=== PATIENT | female | born 1955 | race Caucasian/White ===

== ENCOUNTER 2020-12-08 06:30 | Inpatient (IN) ==
[2020-12-08] MEDS ORDERED: ALBUTEROL SULFATE/IPRATROPIUM 3 ML NEBU IH ONE (06:56)
[2020-12-08] MEDS ORDERED: NORMAL SALINE 1,000 ML IV ONE ×2 (06:56→12:03)
--- NOTE | 2020-12-08 07:06 | ERNOTE ---
Dyspnea - Date Date of Service: 12/08/20 - General Presenting Symptoms: other - Patient feels dehydrated and weak Time Seen by Provider: 12/08/20 06:51 Source: patient Exam Limitations: no limitations - Immun/Allergies/Home Medications Immunizations: IMMUNIZATION HX Immunizations Up to Date Yes History of Influenza Vaccine No Hx Pneumococcal Vaccination No Allergies/Adverse Reactions: Allergies No Known Allergies Allergy (Verified 01/07/20 14:38) Home Medications: HOME MEDICATIONS Lisinopril/Hydrochlorothiazide [Lisinopril-Hctz 10-12.5 mg Tab] 1 ea PO DAILY 09/05/19 [Last Taken Unknown] - History of Present Illness Narrative: 65-year-old female comes to the emergency room complaining of feeling dehydrated. She states she had a CAT scan on Wednesday was diagnosed with pneumonia and was started on Levaquin. Patient is a difficult historian uncooperative at times. She states she has had 2 Covid tests were negative the last she thinks was . She denies any shortness of breath difficulty breathing the only thing again is that she feels dehydrated and weak. She states the reason we did a CAT scan was that she has a history of pulmonary embolism 2018. Patient was evaluated on [facility] she had blood work and a PE study due to a positive D-dimer the CT was read as no evidence for PE but she had bilateral multifocal pneumonia involving the left lower lobe probably consistent with a typical community-acquired bacterial pneumonia however given the multifocality cannot completely exclude the multifocal Covid pneumonia and associated reactive lymph nodes. Medical records were requested and received from [facility] her Covid at that time was negative Date (Duration): 12/08/20 Time (Timing): 07:03 Severity: moderate Treatment BUSINESS CENTER REPRESENTATIVE: by patient Initiating event: Reports: upper resp illness Frequency of episodes: Reports: no prior episodes Modifying Factors - (Improves): Reports: rest Modifying Factors (Worsens): Reports: coughing Associated Symptoms-Dyspnea: Reports: lightheadedness, weakness Prior Treatment: Reports: recently seen Review of Systems - Review of Systems Constitutional: Present: weakness EYE: Present: no symptoms reported ENT: Present: no symptoms reported Respiratory: Present: shortness of breath Cardiology: Present: no symptoms reported Gastrointestinal/Abdominal: Present: no symptoms reported Genitourinary: Present: no symptoms reported Musculoskeletal: Present: no symptoms reported Skin: Present: no symptoms reported Neurological: Present: anxiety Endocrine: Present: no symptoms reported All Other Systems: All systems neg except as marked Medical History (Last Reviewed 12/08/20 @ 07:04 by Toño Mendes MD) Hypertension Pulmonary embolism Surgical History: Surgical History (Last Reviewed 12/08/20 @ 07:04 by Toño Mendes MD) Hx of left knee surgery Family History: Family History (Last Reviewed 12/08/20 @ 06:45 by Mireya Lux, RN) Other No pertinent family history Social History: (Last Reviewed 12/08/20 @ 06:45 by Mireya Lux, RN) Social History: adopted: No foster care: No current occupational status: employed Tobacco: Smoking Status: Never smoker Alcohol: alcohol intake frequency: other Substance Use: substance use type: does not use Dietary Habits: caffeine: Yes Physical Exam - Physical Exam General Appearance: Present: wd/wn, alert, moderate distress Head Exam: Present: normal inspection Eye Exam: Normal inspection: bilateral, PERRL: bilateral, EOMI: bilateral Ears, Nose, Throat: Present: normal ENT inspection, dry mucous membranes Neck: Present: normal inspection, nontender, supple, full range of motion Respiratory: Present: no respiratory distress Cardiovascular/Chest: Present: regular rate, rhythm Gastrointestinal/Abdominal: Present: normal bowel sounds Back Exam: Present: normal inspection Extremity Exam: Present: normal inspection Neurological Exam: Present: alert, oriented, no motor/sensory deficits Skin Exam: Present: normal color, warm/dry Lymphatic Exam: Present: no adenopathy Progress - Vital Signs Vital Signs: Vital Signs 12/08/20 06:40 12/08/20 06:44 Temperature 37.5 C Pulse Rate 120 H 122 H Respiratory Rate 16 Blood Pressure 116/74 O2 Sat by Pulse Oximetry 90 L - EKG EKG #1 EKG: NSR EKG read: Interp. by me EKG Comments: EKG sinus rhythm heart rate of 91 old anterior myocardial infarction no acute changes when compared to August 31 - Progress/Reassessment Chief Complaint: Dyspnea - Transfer of Care Physician Sign Out: Toño Mendes Receiving Physician: Didier Peralta Pending Results: CT/MRI results, Labs Expected Disposition: Admit Departure Clinical Impression: Pneumonia - Departure Disposition: Still a patient Condition: Fair Referrals: Mary Jo Kim ARNP [Primary Care Provider] -
[2020-12-08 07:21] LABS: Hematocrit 36.5 % (37.0-47.0); Mean Cell Volume 94.1 fl (78-100); Mean Corpuscular Hemoglobin 30.9 pg (27-31); Mean Corpuscular Hgb Conc 32.9 g/dl (32-36); Mean Platelet Volume 8.8 fl (8-12.5); Platelet Count 151 K/mm3 (150-450); Red Blood Count 3.88 M/mm3 (4.2-5.4); White Blood Count 7.6 K/mm3 (4.0-10.5)
[2020-12-08 07:28] LABS: Total Cells Counted 100
[2020-12-08 07:34] LABS: Troponin I Less than 0.017 ng/mL (0.00-0.10)
[2020-12-08 07:36] LABS: ALT 78 U/L (19-67); AST 65 U/L (0-48); Alkaline Phosphatase * 82 U/L (50-170); Anion Gap 16.7 mmol/L (6.8-13.8); BNP * 378 pg/mL (5-325); BUN/Creatinine Ratio 12.4 (9.0-21.6); Bilirubin, Total 0.3 mg/dL (0.0-1.1); Blood Urea Nitrogen 13 mg/dL (3-23); Ca. Corrected For Albumin 8.6 mg/dL (8.4-10.2); Calcium * 8.1 mg/dL (7.9-10.9); Carbon Dioxide 21.1 mmol/L (24-32.6); Chloride 99 mmol/L (97-106); Glucose * 133 mg/dL (70-110); Potassium 3.8 mmol/L (3.4-4.6); Sodium 133 mmol/L (132-142); Total Protein 7.1 gm/dL (6.2-8.2)
[2020-12-08 07:47] LABS: Band 3 % (0-2.0); Lymphocyte 10 % (20-51); Monocyte 2 % (0-9); Neutrophil 85 % (42-75); Neutrophil # 6.5 K/mm3 (1.3-6.0)
[2020-12-08 07:48] LABS: Anisocytosis Trace; Platelet Estimate Normal (NORMAL)
[2020-12-08 08:41] LABS: Urine Appearance Clear (CLEAR); Urine Color Yellow
[2020-12-08 08:42] LABS: Urine Bilirubin 1 mg/dl (NEGATIVE); Urine Blood 5 /ul (NEGATIVE); Urine Ketone Large mg/dL (NEGATIVE); Urine Protein 100 mg/dL (NEGATIVE)
[2020-12-08 08:43] LABS: Urine Bacteria None Seen; Urine Nitrite Negative (NEGATIVE); Urine RBC 0-5 /hpf (0-5); Urine Urobilinogen Normal (NORMAL); Urine WBC 0-5 /hpf (0-5)
[2020-12-08] MEDS ORDERED: DEXAMETHASONE SODIUM PHOSP/PF 10 MG/ML VIAL IV ONE (09:12)
[2020-12-08] MEDS ORDERED: HYDROmorphone HCL 1 MG/ML DISP.SYRIN IV ONE (09:13)
[2020-12-08] MEDS ORDERED: AZITHROMYCIN 500 MG in DEXTROSE 5 % IN WATER 250 ML IV ONE ×2 (09:30)
--- NOTE | 2020-12-08 12:31 | HP ---
Chief Complaint - Chief Complaint Date of Service: 12/08/20 Time of Service: 12:23 Chief Complaint: I feel weak and dehydrated History of Present Illness: 65-year-old female with past medical history of hypertension and pulmonary embolism was evaluated the ER for worsening fatigue and generalized weakness of 2 weeks duration. Patient reports becoming ill 2 weeks ago when she developed a cough and fever and chills, she gradually got weaker and felt dehydrated. The patient reports she tried to eat to keep her nutrition but her appetite was poor, so she only ate crackers and drink water. She had been seen twice at [facility] in the ER where she was tested for COVID-19 but was negative, she was told she most likely has community pneumonia and was sent home. Last night her symptoms worsened and she could hardly sit up so she came to our ER where she was once again tested for COVID-19 and came a positive. The patient's O2 sats have been suboptimal although she did denies any melba shortness of breath. She also has a persistent cough that is worse on deep inspiration that was not responding to at home remedies. The patient did not feel safe staying home and felt that she needed to come to the hospital for care. Medical History (Last Reviewed 12/08/20 @ 11:27 by Gregorio Vee RN) Hypertension Pulmonary embolism Surgical History: Surgical History (Last Reviewed 12/08/20 @ 11:27 by Gregorio Vee RN) Hx of left knee surgery Family History: Family History (Last Reviewed 12/08/20 @ 11:27 by Gregorio Vee RN) Other No pertinent family history Social History: (Last Reviewed 12/08/20 @ 11:27 by Gregorio Vee RN) Social History: adopted: No foster care: No current occupational status: employed Tobacco: Smoking Status: Never smoker Alcohol: alcohol intake frequency: other Substance Use: substance use type: does not use Dietary Habits: caffeine: Yes Peds Patient Hx - Developmental: No Pertinent Hx Peds Patient Hx - Medical: No Pertinent Hx Peds Patient Hx - Cardiac/Respiratory: No Pertinent Hx Peds Patient Hx - Surgical: No Surgical History Patient History - Cancer: No Hx of Cancer Review Of Systems (GEN) - Review of Systems Generalized/Overall Review: Present: Weakness, Chills, Fever, Fatigue EENTM: Present: No Symptoms Reported Respiratory: Present: Cough Cardiac: Present: No Symptoms Reported Abdominal: Present: Other - Loss of appetite Genitourinary: Present: No Symptoms Reported Musculoskeletal: Present: No Symptoms Reported Neurological: Present: No Symptoms Reported Skin: Present: No Symptoms Reported Endocrine: Present: No Symptoms Reported Immunizations: IMMUNIZATION HX Immunizations Up to Date Yes History of Influenza Vaccine No Hx Pneumococcal Vaccination No Allergies/Adverse Reactions: Allergies Allergy/AdvReac Type Severity Reaction Status Date / Time No Known Allergies Allergy Verified 12/08/20 11:27 Home Medications: HOME MEDICATIONS Lisinopril/Hydrochlorothiazide [Lisinopril-Hctz 10-12.5 mg Tab] 1 ea PO DAILY 09/05/19 [Last Taken Unknown] Levofloxacin [Levaquin] 500 mg PO DAILY 12/08/20 [Last Taken Unknown] amLODIPine BESYLATE [Norvasc] 5 mg PO DAILY 12/08/20 [Last Taken Unknown] Exam - Exam Vital Signs: Vital Signs - Last Taken Temp 37.3 C 12/08/20 11:26 Pulse 102 H 12/08/20 11:26 Resp 21 H 12/08/20 11:26 BP 121/75 12/08/20 11:26 Pulse Ox 96 12/08/20 11:26 Constitutional: Present: Alert, Oriented x3, Cooperative, Well developed, Well nourished, No distress, Lethargic Eye Exam: bilateral eye: normal inspection, PERRL, EOMI Neck: Present: non-tender, full range of motion, supple, normal inspection, trachea midline Back Exam: Present: normal inspection, no CVA tenderness, no vertebral tenderness Breasts: Present: Exam deferred, Nontender Respiratory: Present: chest non-tender, no respiratory distress, no accessory muscle use, decreased breath sounds, crackles Cardiovascular/Chest: Present: normal peripheral pulses, regular rate, rhythm, no chest tenderness, no edema, no gallop, no JVD, no murmur, no rub Peripheral Pulses: dorsalis-pedis (R): 2+, dorsalis-pedis (L): 2+ Abdomen: Present: Normal bowel sounds, soft, nontender, nondistended, no rebound tenderness, no hepatospenomegaly, no masses /Rectal: Present: Exam deferred Extremity: Present: normal range of motion, non-tender, normal inspection, no pedal edema, no calf tenderness, normal capillary refill, pelvis stable Skin Exam: Present: normal color, warm/dry, no cyanosis Lymphatic: Present: no adenopathy Neurologic: Present: motor overhauler II-XII nml as tested, no motor/sensory deficits, alert, normal mood/affect, oriented x 3 Appearance: Present: appropriate appearance, appropriate insight, neat, no memory impairment Eye contact: Present: cooperative, good eye contact, normal speech Thoughts: Present: normal thought pattern, no apparent hallucination Diagnostic Studies: Abnormal Lab Results 12/08/20 12/08/20 12/08/20 Range/Units 07:10 07:10 07:10 RBC 3.88 L (4.2-5.4) M/mm3 Hgb 12.0 L (12.5-16.0) gm/dL Hct 36.5 L (37.0-47.0) % Neutrophils % (Manual) 85 H (42-75) % Band Neuts % (Manual) 3 H (0-2.0) % Lymphocytes % (Manual) 10 L (20-51) % Neutrophils # (Manual) 6.5 H (1.3-6.0) K/mm3 Lymphocytes # (Manual) 0.8 L (1.5-3.5) k/mm3 D-Dimer 2.81 H (0.19-0.49) ugFEU/mL pCO2 (32.0-45.0) mmHg pO2 (83.0-108.0) mmHg HCO3 (21.0-28.0) mmol/L Total CO2 (19.0-24.0) mmol/L Base Excess (-2.0-3.0) mmol/L ABG pH (7.35-7.45) ABG O2 Sat (Measured) (94.0-98.0) % Carbon Dioxide 21.1 L (24-32.6) mmol/L Anion Gap 16.7 H (6.8-13.8) mmol/L Est GFR (Non-Af Amer) 56 L (60-130) mL/min Random Glucose 133 H (70-110) mg/dL AST 65 H (0-48) U/L ALT 78 H (19-67) U/L B-Natriuretic Peptide 378 H (5-325) pg/mL Albumin 3.0 L (3.4-5.0) gm/dl Urine Protein (NEGATIVE) mg/dL Urine Blood (NEGATIVE) /ul Urine Bilirubin (NEGATIVE) mg/dl SARS-CoV-2 (PCR) (NotDetected) 12/08/20 12/08/20 12/08/20 Range/Units 07:15 08:13 08:15 RBC (4.2-5.4) M/mm3 Hgb (12.5-16.0) gm/dL Hct (37.0-47.0) % Neutrophils % (Manual) (42-75) % Band Neuts % (Manual) (0-2.0) % Lymphocytes % (Manual) (20-51) % Neutrophils # (Manual) (1.3-6.0) K/mm3 Lymphocytes # (Manual) (1.5-3.5) k/mm3 D-Dimer (0.19-0.49) ugFEU/mL pCO2 22.0 L (32.0-45.0) mmHg pO2 58.7 L (83.0-108.0) mmHg HCO3 16.2 L (21.0-28.0) mmol/L Total CO2 16.9 L (19.0-24.0) mmol/L Base Excess -5.3 L (-2.0-3.0) mmol/L ABG pH 7.49 H (7.35-7.45) ABG O2 Sat (Measured) 93.0 L (94.0-98.0) % Carbon Dioxide (24-32.6) mmol/L Anion Gap (6.8-13.8) mmol/L Est GFR (Non-Af Amer) (60-130) mL/min Random Glucose (70-110) mg/dL AST (0-48) U/L ALT (19-67) U/L B-Natriuretic Peptide (5-325) pg/mL Albumin (3.4-5.0) gm/dl Urine Protein 100 H (NEGATIVE) mg/dL Urine Blood 5 H (NEGATIVE) /ul Urine Bilirubin 1 H (NEGATIVE) mg/dl SARS-CoV-2 (PCR) Detected H (NotDetected) Laboratory Results WBC 7.6 K/mm3 (4.0-10.5) 12/08/20 07:10 RBC 3.88 M/mm3 (4.2-5.4) L 12/08/20 07:10 Hgb 12.0 gm/dL (12.5-16.0) L 12/08/20 07:10 Hct 36.5 % (37.0-47.0) L 12/08/20 07:10 MCV 94.1 fl (78-100) 12/08/20 07:10 MCH 30.9 pg (27-31) 12/08/20 07:10 MCHC 32.9 g/dl (32-36) 12/08/20 07:10 RDW 13.0 % (11.5-14.0) 12/08/20 07:10 Plt Count 151 K/mm3 (150-450) 12/08/20 07:10 MPV 8.8 fl (8-12.5) 12/08/20 07:10 Neutrophils % (Manual) 85 % (42-75) H 12/08/20 07:10 Band Neuts % (Manual) 3 % (0-2.0) H 12/08/20 07:10 Lymphocytes % (Manual) 10 % (20-51) L 12/08/20 07:10 Monocytes % (Manual) 2 % (0-9) 12/08/20 07:10 Neutrophils # (Manual) 6.5 K/mm3 (1.3-6.0) H 12/08/20 07:10 Lymphocytes # (Manual) 0.8 k/mm3 (1.5-3.5) L 12/08/20 07:10 Monocytes # (Manual) 0.2 k/mm3 (0.0-1.0) 12/08/20 07:10 Platelet Estimate Normal (NORMAL) 12/08/20 07:10 Anisocytosis Trace 12/08/20 07:10 PTT ([place]) 31.3 Seconds (24-32) 12/08/20 07:10 D-Dimer 2.81 ugFEU/mL (0.19-0.49) H 12/08/20 07:10 pCO2 22.0 mmHg (32.0-45.0) L 12/08/20 07:15 pO2 58.7 mmHg (83.0-108.0) L 12/08/20 07:15 HCO3 16.2 mmol/L (21.0-28.0) L 12/08/20 07:15 Total CO2 16.9 mmol/L (19.0-24.0) L 12/08/20 07:15 Base Excess -5.3 mmol/L (-2.0-3.0) L 12/08/20 07:15 ABG pH 7.49 (7.35-7.45) H 12/08/20 07:15 ABG O2 Sat (Measured) 93.0 % (94.0-98.0) L 12/08/20 07:15 Sodium 133 mmol/L (132-142) 12/08/20 07:10 Plasma Sodium 134 mmol/L (130-142) 12/08/20 07:10 Potassium 3.8 mmol/L (3.4-4.6) 12/08/20 07:10 Chloride 99 mmol/L (97-106) 12/08/20 07:10 Carbon Dioxide 21.1 mmol/L (24-32.6) L 12/08/20 07:10 Anion Gap 16.7 mmol/L (6.8-13.8) H 12/08/20 07:10 BUN 13 mg/dL (3-23) 12/08/20 07:10 Creatinine 1.05 mg/dL (0.4-1.4) 12/08/20 07:10 Est GFR (Non-Af Amer) 56 mL/min (60-130) L 12/08/20 07:10 BUN/Creatinine Ratio 12.4 (9.0-21.6) 12/08/20 07:10 Random Glucose 133 mg/dL (70-110) H 12/08/20 07:10 Calcium 8.1 mg/dL (7.9-10.9) 12/08/20 07:10 Calcium Adj for Albumin 8.6 mg/dL (8.4-10.2) 12/08/20 07:10 Total Bilirubin 0.3 mg/dL (0.0-1.1) 12/08/20 07:10 AST 65 U/L (0-48) H 12/08/20 07:10 ALT 78 U/L (19-67) H 12/08/20 07:10 Alkaline Phosphatase 82 U/L (50-170) 12/08/20 07:10 Troponin I Less than 0.017 ng/mL (0.00-0.10) 12/08/20 07:10 B-Natriuretic Peptide 378 pg/mL (5-325) H 12/08/20 07:10 Total Protein 7.1 gm/dL (6.2-8.2) 12/08/20 07:10 Albumin 3.0 gm/dl (3.4-5.0) L 12/08/20 07:10 Urine Color Yellow 12/08/20 08:13 Urine Appearance Clear (CLEAR) 12/08/20 08:13 Urine pH 7.0 pH (5.0-7.0) 12/08/20 08:13 Ur Specific [place] 1.020 SP.GR. (1.005-1.010) 12/08/20 08:13 Urine Protein 100 mg/dL (NEGATIVE) H 12/08/20 08:13 Urine Glucose (UA) Negative mg/dL (NEGATIVE) 12/08/20 08:13 Urine Ketones Large mg/dL (NEGATIVE) 12/08/20 08:13 Urine Blood 5 /ul (NEGATIVE) H 12/08/20 08:13 Urine Nitrate Negative (NEGATIVE) 12/08/20 08:13 Urine Bilirubin 1 mg/dl (NEGATIVE) H 12/08/20 08:13 Urine Urobilinogen Normal EU/dl (NORMAL) 12/08/20 08:13 Ur Leukocyte Esterase Negative /ul (NEGATIVE) 12/08/20 08:13 Urine RBC 0-5 /hpf (0-5) 12/08/20 08:13 Urine WBC 0-5 /hpf (0-5) 12/08/20 08:13 Ur Epithelial Cells 0-5 /hpf (0-5) 12/08/20 08:13 Urine Bacteria None seen (NONE) 12/08/20 08:13 Urine Culture Comments No culture indicated 12/08/20 08:13 SARS-CoV-2 (PCR) Detected (NotDetected) H 12/08/20 08:15 Assessment/Plan - Narrative Narrative: Patient was evaluated and medical chart was reviewed and decision to admit to [facility] for diagnosis and treatment of COVID-19 pneumonia and moderate dehydration was made. Patient has been treated with IV fluids and antibiotics which she has tolerated without any issues. We will keep her on that current treatment but also add dexamethasone to be given daily. Symptomatic medications for cough fever and pain will also be added to orders. The patient is breathing adequately with a saturation above 94% on room air, so she is not requiring oxygen at this time. However we will keep her on telemetry monitoring watch her closely. Of note she did have an elevated D-dimer which is common in COVID-19 infections but her lung CT was negative for any PE. - Assessment/Plan (1) Pneumonia due to COVID-19 virus Problem: Acute (2) Moderate dehydration Problem: Acute (3) Elevated d-dimer Problem: Acute (4) HTN (hypertension) Problem: Chronic
[2020-12-08] MEDS: ENOXAPARIN SODIUM 40 MG/0.4 ML SYRG SC SCH (13:17)
[2020-12-08] MEDS: guaiFENesin/DEXTROMETHORPHAN SYRUP PO PRN ×2 (15:35→20:34)
[2020-12-08] MEDS: PANTOPRAZOLE SODIUM 20 MG TABLET.DR PO SCH (20:33)
[2020-12-08] MEDS: ACETAMINOPHEN 325 MG TABLET PO PRN (23:36)
[2020-12-09] MEDS: guaiFENesin/DEXTROMETHORPHAN SYRUP PO PRN ×4 (05:03→23:42)
[2020-12-09 06:40] LABS: Albumin * 2.5 gm/dl (3.4-5.0); Anion Gap 15.5 mmol/L (6.8-13.8); BUN/Creatinine Ratio 14.3 (9.0-21.6); Bilirubin, Total 0.3 mg/dL (0.0-1.1); Ca. Corrected For Albumin 8.6 mg/dL (8.4-10.2); Calcium * 7.7 mg/dL (7.9-10.9); Carbon Dioxide 21.3 mmol/L (24-32.6); Potassium 3.8 mmol/L (3.4-4.6); Total Protein 6.4 gm/dL (6.2-8.2)
[2020-12-09] MEDS: ACETAMINOPHEN 325 MG TABLET PO PRN ×2 (07:37→20:26)
[2020-12-09] MEDS: PANTOPRAZOLE SODIUM 20 MG TABLET.DR PO SCH ×2 (07:38→20:26)
[2020-12-09] MEDS: DEXAMETHASONE 2 MG TABLET PO SCH (08:45)
[2020-12-09] MEDS: HYDROCHLOROTHIAZIDE 12.5 MG CAPSULE PO SCH (08:46)
[2020-12-09] MEDS: LISINOPRIL 10 MG TABLET PO SCH (08:46)
[2020-12-09] MEDS: amLODIPine BESYLATE 5 MG TABLET PO SCH (08:46)
[2020-12-09] MEDS: AZITHROMYCIN 250 MG TABLET PO SCH (08:46)
[2020-12-09] MEDS ORDERED: NORMAL SALINE 1,000 ML IV ONE (12:31)
--- NOTE | 2020-12-09 12:34 | PN ---
Subjective - Date and Time Seen Date: 12/09/20 Time: 12:26 Subjective Narrative: I still feel horrible, I'm weak and coughing and chest congestion. Objective Objective Narrative: 65-year-old female admitted for COVID-19 pneumonia and dehydration was evaluated at bedside this morning and was found to be acutely ill with persistent dry cough and generalized weakness. The patient continues to report not feeling well and says she is still weak and having chest congestion. Since arriving to the hospital she has been treated with IV hydration, IV antibiotics, and symptomatic medications treat treat her symptoms. She reports feeling only slightly stronger when compared to yesterday but still way weaker than she normally is. The patient had an episode of fever this morning and had to be administered antipyretics and antitussives for her cough. She is now tolerating oral intake although she reports subpar appetite, however during our conversation this morning she was encouraged to try to eat and drink to resume her strength. We will keep her in the hospital an additional day for intrahospital treatment. - Review of Systems Generalized/Overall Review: Reports: Weakness, Chills, Fever, Fatigue EENTM: Reports: No Symptoms Reported Respiratory: Reports: Cough, Shortness of Breath Cardiac: Reports: No Symptoms Reported Abdominal: Reports: No Symptoms Reported Genitourinary Symptoms: Reports: No Symptoms Reported Musculoskeletal Complaints: Reports: Muscle Pain Neurological: Reports: No Symptoms Reported Skin: Reports: No Symptoms Reported Endocrine: Reports: No Symptoms Reported - Vitals Vitals: Last Vital Signs Temp 37.4 C 12/09/20 11:44 Pulse 94 12/09/20 11:44 Resp 20 12/09/20 11:44 BP 129/71 12/09/20 11:44 Pulse Ox 92 L 12/09/20 11:44 - Abnormal Lab Findings Abnormal Lab Findings: Abnormal Lab Results 12/09/20 Range/Units 06:16 Carbon Dioxide 21.3 L (24-32.6) mmol/L Anion Gap 15.5 H (6.8-13.8) mmol/L Est GFR (Non-Af Amer) 56 L (60-130) mL/min Random Glucose 146 H (70-110) mg/dL Calcium 7.7 L (7.9-10.9) mg/dL AST 64 H (0-48) U/L ALT 69 H (19-67) U/L Albumin 2.5 L (3.4-5.0) gm/dl - Exam Constitutional: Present: Alert, Oriented x3, Cooperative, Well developed, Well nourished, No distress ENT Exam: Present: normal ENT inspection, hearing grossly normal Neck: Present: non-tender, full range of motion, supple, normal inspection, trachea midline Breasts: Present: Exam deferred, Nontender Respiratory: Present: no respiratory distress, no accessory muscle use, decreased breath sounds, crackles, rales Cardiovascular/Chest: Present: normal peripheral pulses, regular rate, rhythm, no chest tenderness, no edema, no gallop, no JVD, no murmur, no rub Abdomen: Present: Normal bowel sounds, soft, nontender, nondistended, no rebound tenderness, no hepatospenomegaly, no masses /Rectal: Present: Exam deferred Extremity: Present: normal range of motion, non-tender, normal inspection, no pedal edema, no calf tenderness, normal capillary refill, pelvis stable Skin Exam: Present: normal color, warm/dry, no cyanosis Lymphatic: Present: no adenopathy Neurologic: Present: search strategist II-XII nml as tested, no motor/sensory deficits, alert, normal mood/affect, oriented x 3 Appearance: Present: appropriate appearance, appropriate insight, neat, no memory impairment Eye contact: Present: cooperative, good eye contact, normal speech Thoughts: Present: normal thought pattern, no apparent hallucination Assessment/Plan Plan Narrative: We will keep the patient on IV hydration and IV antibiotics, and continue to treat her with breathing treatments to alleviate her dyspnea. The patient is also tolerating oral dexamethasone without any issues. We will continue to monitor closely. - Problems/Diagnosis (1) Pneumonia due to COVID-19 virus Problem: Acute (2) Moderate dehydration Problem: Resolved (3) Elevated d-dimer Problem: Acute (4) HTN (hypertension) Problem: Chronic (5) Transaminitis Problem: Acute
[2020-12-09] MEDS: ENOXAPARIN SODIUM 40 MG/0.4 ML SYRG SC SCH (12:37)
[2020-12-10] MEDS: guaiFENesin/DEXTROMETHORPHAN SYRUP PO PRN ×3 (03:45→21:42)
[2020-12-10] MEDS: ACETAMINOPHEN 325 MG TABLET PO PRN ×3 (06:37→21:43)
[2020-12-10] MEDS: PANTOPRAZOLE SODIUM 20 MG TABLET.DR PO SCH ×2 (06:38→20:16)
--- NOTE | 2020-12-10 09:28 | PN ---
Subjective - Date and Time Seen Date: 12/10/20 Time: 09:22 Subjective Narrative: I still feel bad, weak and with chest congestion. Objective Objective Narrative: 65-year-old female admitted for COVID-19 pneumonia and dehydration was evaluated at bedside this morning and was found to be eval and in no acute distress. Patient continues to be acutely ill, she continues to report body ache weakness and chest congestion. Since yesterday's bout of fever we have not had a recurrence however the patient still looks sick. She will need an additional day of intrahospital care to address her COVID-19 symptoms particula rly her breathing and her oxygen saturation. The patient is currently on antibiotics as well as dexamethasone so we will continue the current management and watch closely. - Review of Systems Generalized/Overall Review: Reports: Weakness, Fatigue EENTM: Reports: No Symptoms Reported Respiratory: Reports: Cough, Shortness of Breath Cardiac: Reports: No Symptoms Reported Abdominal: Reports: No Symptoms Reported Genitourinary Symptoms: Reports: No Symptoms Reported Musculoskeletal Complaints: Reports: No Symptoms Reported Neurological: Reports: No Symptoms Reported Skin: Reports: No Symptoms Reported Endocrine: Reports: No Symptoms Reported - Vitals Vitals: Last Vital Signs Temp 36.9 C 12/10/20 06:37 Pulse 83 12/10/20 08:36 Resp 30 H 12/10/20 06:37 BP 128/79 12/10/20 06:37 Pulse Ox 91 L 12/10/20 06:37 - Exam Constitutional: Present: Alert, Oriented x3, Cooperative, Well developed, Well nourished, No distress ENT Exam: Present: normal ENT inspection, hearing grossly normal Neck: Present: non-tender, full range of motion, supple, normal inspection, trachea midline Breasts: Present: Exam deferred, Nontender Respiratory: Present: no respiratory distress, no accessory muscle use, decreased breath sounds, crackles Cardiovascular/Chest: Present: normal peripheral pulses, regular rate, rhythm, no chest tenderness, no edema, no gallop, no JVD, no murmur, no rub Abdomen: Present: Normal bowel sounds, soft, nontender, nondistended, no rebound tenderness, no hepatospenomegaly, no masses /Rectal: Present: Exam deferred Extremity: Present: normal range of motion, non-tender, normal inspection, no pedal edema, no calf tenderness, normal capillary refill Skin Exam: Present: normal color, warm/dry, no cyanosis Lymphatic: Present: no adenopathy Neurologic: Present: mathematical statistician II-XII nml as tested, no motor/sensory deficits, alert, normal mood/affect, oriented x 3 Appearance: Present: appropriate appearance, appropriate insight, neat, no memory impairment Eye contact: Present: cooperative, good eye contact, normal speech Thoughts: Present: normal thought pattern, no apparent hallucination Assessment/Plan Plan Narrative: We will continue the current management and attempt to wean the patient's oxygen as she tolerates. Labs have been ordered for tomorrow morning so we will follow-up during rounds. - Problems/Diagnosis (1) Pneumonia due to COVID-19 virus Problem: Acute (2) Moderate dehydration Problem: Resolved (3) Elevated d-dimer Problem: Acute (4) HTN (hypertension) Problem: Chronic (5) Transaminitis Problem: Acute
[2020-12-10] MEDS: AZITHROMYCIN 250 MG TABLET PO SCH (09:34)
[2020-12-10] MEDS: HYDROCHLOROTHIAZIDE 12.5 MG CAPSULE PO SCH (09:34)
[2020-12-10] MEDS: LISINOPRIL 10 MG TABLET PO SCH (09:34)
[2020-12-10] MEDS: amLODIPine BESYLATE 5 MG TABLET PO SCH (09:34)
[2020-12-10] MEDS: DEXAMETHASONE 2 MG TABLET PO SCH (09:34)
[2020-12-10] MEDS: ENOXAPARIN SODIUM 40 MG/0.4 ML SYRG SC SCH (11:14)
[2020-12-11] MEDS: PANTOPRAZOLE SODIUM 20 MG TABLET.DR PO SCH ×2 (06:31→20:03)
[2020-12-11 06:55] LABS: Albumin * 2.5 gm/dl (3.4-5.0); Anion Gap 16.3 mmol/L (6.8-13.8); BUN/Creatinine Ratio 21.8 (9.0-21.6); Bilirubin, Total 0.4 mg/dL (0.0-1.1); Ca. Corrected For Albumin 8.9 mg/dL (8.4-10.2); Carbon Dioxide 22.2 mmol/L (24-32.6); Potassium 3.5 mmol/L (3.4-4.6); Total Protein 6.7 gm/dL (6.2-8.2)
[2020-12-11] MEDS: AZITHROMYCIN 250 MG TABLET PO SCH (08:39)
[2020-12-11] MEDS: DEXAMETHASONE 2 MG TABLET PO SCH (08:39)
[2020-12-11] MEDS: HYDROCHLOROTHIAZIDE 12.5 MG CAPSULE PO SCH (08:39)
[2020-12-11] MEDS: LISINOPRIL 10 MG TABLET PO SCH (08:39)
[2020-12-11] MEDS: amLODIPine BESYLATE 5 MG TABLET PO SCH (08:39)
[2020-12-11] MEDS: ACETAMINOPHEN 325 MG TABLET PO PRN ×3 (08:50→19:04)
[2020-12-11] MEDS: guaiFENesin/DEXTROMETHORPHAN SYRUP PO PRN ×2 (08:51→16:25)
[2020-12-11] MEDS ORDERED: NORMAL SALINE 1,000 ML IV PRN (09:47)
--- NOTE | 2020-12-11 09:49 | PN ---
Subjective - Date and Time Seen Date: 12/11/20 Time: 09:45 Subjective Narrative: I am very weak and have chest congestion and shortness of breath Objective Objective Narrative: 65-year-old female admitted for COVID-19 pneumonia and dehydration was evaluated at bedside this morning and was found to be eval and in no acute distress but patient continues to be acutely ill. She is still weak and tires very easily despite optimal hydration since arriving at our facility. She remains on high flow nasal cannula that has to be increased mostly at night and still has a persistent cough. Patient continues to have crackles at her lung bases which most likely indicates continued inflammation in her lungs. Nurse reports tolerance of oral intake but her appetite is still not where it needs to be. We will add another IV normal saline in order to continue hydrating her. - Review of Systems Generalized/Overall Review: Reports: Weakness EENTM: Reports: No Symptoms Reported Respiratory: Reports: Cough, Shortness of Breath Cardiac: Reports: No Symptoms Reported Abdominal: Reports: No Symptoms Reported Genitourinary Symptoms: Reports: No Symptoms Reported Musculoskeletal Complaints: Reports: No Symptoms Reported Neurological: Reports: No Symptoms Reported Skin: Reports: No Symptoms Reported Endocrine: Reports: No Symptoms Reported - Vitals Vitals: Last Vital Signs Temp 36.0 C 12/11/20 06:46 Pulse 95 12/11/20 08:39 Resp 30 H 12/11/20 06:46 BP 132/86 12/11/20 08:39 Pulse Ox 92 L 12/11/20 06:46 - Abnormal Lab Findings Abnormal Lab Findings: Abnormal Lab Results 12/11/20 Range/Units 06:36 Carbon Dioxide 22.2 L (24-32.6) mmol/L Anion Gap 16.3 H (6.8-13.8) mmol/L BUN/Creatinine Ratio 21.8 H (9.0-21.6) Random Glucose 142 H (70-110) mg/dL AST 63 H (0-48) U/L ALT 84 H (19-67) U/L Albumin 2.5 L (3.4-5.0) gm/dl - Exam Constitutional: Present: Alert, Oriented x3, Cooperative, Well developed, No distress ENT Exam: Present: normal ENT inspection, hearing grossly normal Neck: Present: non-tender, full range of motion, supple, normal inspection, trachea midline Breasts: Present: Exam deferred, Nontender Respiratory: Present: chest non-tender, no respiratory distress, no accessory muscle use, crackles Cardiovascular/Chest: Present: normal peripheral pulses, regular rate, rhythm, no chest tenderness, no edema, no gallop, no JVD, no murmur, no rub Abdomen: Present: Normal bowel sounds, soft, nontender, nondistended, no rebound tenderness, no hepatospenomegaly, no masses /Rectal: Present: Exam deferred Extremity: Present: normal range of motion, non-tender, normal inspection, no pedal edema, no calf tenderness, normal capillary refill, pelvis stable Skin Exam: Present: normal color, warm/dry, no cyanosis Lymphatic: Present: no adenopathy Neurologic: Present: certified pesticide 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 - Problems/Diagnosis (1) Pneumonia due to COVID-19 virus Problem: Acute (2) Moderate dehydration Problem: Resolved (3) Elevated d-dimer Problem: Acute (4) HTN (hypertension) Problem: Chronic (5) Transaminitis Problem: Acute
[2020-12-11] MEDS: ENOXAPARIN SODIUM 40 MG/0.4 ML SYRG SC SCH (11:15)
[2020-12-12] MEDS: ACETAMINOPHEN 325 MG TABLET PO PRN ×3 (02:02→19:52)
[2020-12-12] MEDS: guaiFENesin/DEXTROMETHORPHAN SYRUP PO PRN ×2 (02:02→19:52)
[2020-12-12] MEDS: PANTOPRAZOLE SODIUM 20 MG TABLET.DR PO SCH ×2 (06:29→20:37)
[2020-12-12] MEDS: amLODIPine BESYLATE 5 MG TABLET PO SCH (08:56)
[2020-12-12] MEDS: LISINOPRIL 10 MG TABLET PO SCH (08:56)
[2020-12-12] MEDS: HYDROCHLOROTHIAZIDE 12.5 MG CAPSULE PO SCH (08:56)
[2020-12-12] MEDS: DEXAMETHASONE 2 MG TABLET PO SCH (08:56)
[2020-12-12] MEDS: AZITHROMYCIN 250 MG TABLET PO SCH (08:56)
[2020-12-12] MEDS: ENOXAPARIN SODIUM 40 MG/0.4 ML SYRG SC SCH (11:48)
--- NOTE | 2020-12-12 11:51 | PN ---
Subjective - Date and Time Seen Date: 12/12/20 Time: 11:46 Subjective Narrative: I feel somewhat better, my appetite is improving Objective Objective Narrative: Patient is showing some clinical progress today, she is able to sit up in her chair comfortably and is reporting less weakness. Her shortness of breath and cough are also improving, however she remains on oxygen. We will attempt to wean oxygen to see how she tolerates we will keep her the breathing treatments and steroids for now. She reports better appetite and has been eating and drinking more and overall looks better this morning. We will continue to monit or her. - Review of Systems Generalized/Overall Review: Reports: Weakness EENTM: Reports: No Symptoms Reported Respiratory: Reports: Cough, Shortness of Breath Cardiac: Reports: No Symptoms Reported Abdominal: Reports: No Symptoms Reported Genitourinary Symptoms: Reports: No Symptoms Reported Musculoskeletal Complaints: Reports: No Symptoms Reported Neurological: Reports: No Symptoms Reported Skin: Reports: No Symptoms Reported Endocrine: Reports: No Symptoms Reported - Vitals Vitals: Last Vital Signs Temp 36.4 C 12/12/20 10:25 Pulse 100 12/12/20 10:25 Resp 24 H 12/12/20 10:25 BP 145/89 12/12/20 10:25 Pulse Ox 94 12/12/20 10:25 - Exam Constitutional: Present: Alert, Oriented x3, Cooperative, Well developed, No distress ENT Exam: Present: normal ENT inspection, hearing grossly normal Neck: Present: non-tender, full range of motion, supple, normal inspection, trachea midline Breasts: Present: Exam deferred Respiratory: Present: crackles - Fine bibasilar crackles Cardiovascular/Chest: Present: normal peripheral pulses, regular rate, rhythm, no chest tenderness, no edema, no gallop, no JVD, no murmur, no rub Abdomen: Present: Normal bowel sounds, soft, nontender, nondistended, no rebound tenderness, no hepatospenomegaly, no masses /Rectal: Present: Exam deferred Extremity: Present: normal range of motion, non-tender, normal inspection, no pedal edema, no calf tenderness Skin Exam: Present: normal color, warm/dry, no cyanosis Lymphatic: Present: no adenopathy 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 - Problems/Diagnosis (1) Pneumonia due to COVID-19 virus Problem: Acute (2) Moderate dehydration Problem: Resolved (3) Elevated d-dimer Problem: Acute (4) HTN (hypertension) Problem: Chronic (5) Transaminitis Problem: Acute
[2020-12-12] MEDS: ASCORBIC ACID 500 MG TABLET PO SCH (12:22)
[2020-12-12] MEDS: ZINC SULFATE 220 MG CAPSULE PO SCH (12:23)
[2020-12-13] MEDS: ACETAMINOPHEN 325 MG TABLET PO PRN ×3 (02:54→20:05)
[2020-12-13] MEDS: guaiFENesin/DEXTROMETHORPHAN SYRUP PO PRN ×3 (02:55→20:07)
[2020-12-13] MEDS: PANTOPRAZOLE SODIUM 20 MG TABLET.DR PO SCH ×2 (06:27→20:05)
[2020-12-13] MEDS: amLODIPine BESYLATE 5 MG TABLET PO SCH (08:15)
[2020-12-13] MEDS: HYDROCHLOROTHIAZIDE 12.5 MG CAPSULE PO SCH (08:15)
[2020-12-13] MEDS: DEXAMETHASONE 2 MG TABLET PO SCH (08:15)
[2020-12-13] MEDS: LISINOPRIL 10 MG TABLET PO SCH (08:15)
[2020-12-13] MEDS: ZINC SULFATE 220 MG CAPSULE PO SCH (08:17)
[2020-12-13] MEDS: ASCORBIC ACID 500 MG TABLET PO SCH (08:17)
--- NOTE | 2020-12-13 09:58 | PN ---
Subjective - Date and Time Seen Date: 12/13/20 Time: 09:52 Subjective Narrative: I still have shortness of breath Objective Objective Narrative: 65-year-old female admitted for COVID-19 pneumonia and dehydration was evaluated at bedside this morning was found to be afebrile and in no acute distress. However the patient continues to be acutely ill and still not feeling strong enough to leave the hospital. She continues to require a significant amount of supplemental oxygen, in fact this morning she regressed to a nonrebreather mask for better oxygenation. Patient continues to desat with minor exertion like transferring from bed to chair. Given these findings decision to repeat a chest x-ray switch to IV Solu-Medrol and to administer breathing treatment [id number] was made. - Review of Systems Generalized/Overall Review: Reports: Weakness EENTM: Reports: No Symptoms Reported Respiratory: Reports: Cough, Shortness of Breath Cardiac: Reports: No Symptoms Reported Abdominal: Reports: No Symptoms Reported Genitourinary Symptoms: Reports: No Symptoms Reported Musculoskeletal Complaints: Reports: No Symptoms Reported Neurological: Reports: No Symptoms Reported Skin: Reports: No Symptoms Reported Endocrine: Reports: No Symptoms Reported - Vitals Vitals: Last Vital Signs Temp 36.8 C 12/13/20 06:53 Pulse 90 12/13/20 08:15 Resp 23 H 12/13/20 06:53 BP 150/88 H 12/13/20 08:15 Pulse Ox 98 12/13/20 08:49 - Exam Constitutional: Present: Alert, Oriented x3, Cooperative, Well developed, Well nourished, No distress ENT Exam: Present: normal ENT inspection, hearing grossly normal Neck: Present: non-tender, full range of motion, supple, normal inspection, trachea midline Breasts: Present: Exam deferred, Nontender Respiratory: Present: no respiratory distress, no accessory muscle use, crackles Cardiovascular/Chest: Present: normal peripheral pulses, regular rate, rhythm, no chest tenderness, no edema, no gallop, no JVD, no murmur, no rub Abdomen: Present: Normal bowel sounds, soft, nontender, nondistended, no rebound tenderness, no hepatospenomegaly, no masses /Rectal: Present: Exam deferred Extremity: Present: normal range of motion, non-tender, normal inspection, no pedal edema, no calf tenderness, normal capillary refill, pelvis stable Skin Exam: Present: normal color, warm/dry, no cyanosis Lymphatic: Present: no adenopathy Neurologic: Present: 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 The patient was switched to IV Solu-Medrol and a repeat chest x-ray was ordered. We will also order a CMP to reevaluate electrolytes. Nursing staff has been changing the patient's position from decubitus to prone position every 2 hours which appears to be helping, will continue this practice and keep her for additional days of intrahospital care. - Problems/Diagnosis (1) Pneumonia due to COVID-19 virus Problem: Acute (2) Moderate dehydration Problem: Resolved (3) Elevated d-dimer Problem: Acute (4) HTN (hypertension) Problem: Chronic (5) Transaminitis Problem: Acute
[2020-12-13] MEDS ORDERED: METHYLPREDNISOLONE SOD SUCC/PF 40 MG/ML VIAL IV SCH (10:00)
[2020-12-13] MEDS: IPRATROPIUM/ALBUTEROL SULFATE 120 PUFF INHALER IH SCH ×4 (10:21→23:54)
[2020-12-13 10:44] LABS: Albumin * 2.5 gm/dl (3.4-5.0); Anion Gap 17.1 mmol/L (6.8-13.8); Bilirubin, Total 0.5 mg/dL (0.0-1.1); Ca. Corrected For Albumin 8.8 mg/dL (8.4-10.2); Calcium * 7.9 mg/dL (7.9-10.9); Carbon Dioxide 23.2 mmol/L (24-32.6); Potassium 3.3 mmol/L (3.4-4.6)
[2020-12-13] MEDS: ENOXAPARIN SODIUM 40 MG/0.4 ML SYRG SC SCH (11:20)
[2020-12-13] MEDS ORDERED: POTASSIUM CHLORIDE 20 MEQ TABLET.SA PO ONE (12:19)
[2020-12-13] MEDS: LEVOFLOXACIN IN DEXTROSE 5 % 500 MG/100 ML BAG IV SCH (13:06)
[2020-12-13] MEDS: FUROSEMIDE 10 MG/ML VIAL IV SCH ×2 (13:07→23:54)
[2020-12-13] MEDS: METHYLPREDNISOLONE SOD SUCC/PF 125 MG/2 ML VIAL IV SCH ×2 (15:11→21:14)
[2020-12-14] MEDS: METHYLPREDNISOLONE SOD SUCC/PF 125 MG/2 ML VIAL IV SCH ×4 (03:58→21:15)
[2020-12-14] MEDS: IPRATROPIUM/ALBUTEROL SULFATE 120 PUFF INHALER IH SCH ×6 (03:59→22:13)
[2020-12-14] MEDS: PANTOPRAZOLE SODIUM 20 MG TABLET.DR PO SCH ×2 (07:32→21:14)
[2020-12-14] MEDS: guaiFENesin/DEXTROMETHORPHAN SYRUP PO PRN ×4 (07:32→23:48)
[2020-12-14] MEDS: ACETAMINOPHEN 325 MG TABLET PO PRN ×4 (07:32→23:47)
[2020-12-14] MEDS: ZINC SULFATE 220 MG CAPSULE PO SCH (08:27)
[2020-12-14] MEDS: amLODIPine BESYLATE 10 MG TABLET PO SCH (08:27)
[2020-12-14] MEDS: HYDROCHLOROTHIAZIDE 12.5 MG CAPSULE PO SCH (08:28)
[2020-12-14] MEDS: LISINOPRIL 10 MG TABLET PO SCH (08:28)
[2020-12-14] MEDS: ASCORBIC ACID 500 MG TABLET PO SCH (08:28)
[2020-12-14] MEDS: ENOXAPARIN SODIUM 40 MG/0.4 ML SYRG SC SCH (12:01)
[2020-12-14] MEDS: LEVOFLOXACIN IN DEXTROSE 5 % 500 MG/100 ML BAG IV SCH (12:02)
[2020-12-14] MEDS: FUROSEMIDE 10 MG/ML VIAL IV SCH (12:02)
--- NOTE | 2020-12-14 13:51 | PN ---
Subjective - Date and Time Seen Date: 12/14/20 Time: 10:45 Subjective Narrative: Kristyn reports feeling a little better. No fever, chills. Breathing a little better. Nursing was able to wean from 13lpm to 8lpm this morning. She has been self proning well. Objective - Vitals Vitals: Last Vital Signs Temp 36.8 C 12/14/20 08:33 Pulse 115 H 12/14/20 12:02 Resp 23 H 12/14/20 08:33 BP 143/80 12/14/20 12:02 Pulse Ox 96 12/14/20 09:15 - Exam Constitutional: Present: Alert, Oriented x3, Cooperative Respiratory: Present: crackles Cardiovascular/Chest: Present: no murmur, tachycardia Abdomen: Present: Normal bowel sounds, soft, nontender, nondistended Appearance: Present: appropriate appearance, appropriate insight Eye contact: Present: cooperative, good eye contact, normal speech Thoughts: Present: normal thought pattern, no apparent hallucination Assessment/Plan Plan Narrative: Overall a little better today. Continue current treatment. On levaquin, steroids, diuretics. Continue to self prone and wean from oxygen as able. No changes in medications today. - Problems/Diagnosis (1) Acute respiratory failure due to COVID-19 Problem: Acute (2) Pneumonia due to COVID-19 virus Problem: Acute
[2020-12-15] MEDS: IPRATROPIUM/ALBUTEROL SULFATE 120 PUFF INHALER IH SCH ×6 (03:35→22:14)
[2020-12-15] MEDS: METHYLPREDNISOLONE SOD SUCC/PF 125 MG/2 ML VIAL IV SCH ×4 (03:36→21:34)
[2020-12-15] MEDS: guaiFENesin/DEXTROMETHORPHAN SYRUP PO PRN ×3 (04:03→19:36)
[2020-12-15] MEDS: ACETAMINOPHEN 325 MG TABLET PO PRN ×3 (04:17→19:36)
[2020-12-15] MEDS: PANTOPRAZOLE SODIUM 20 MG TABLET.DR PO SCH ×2 (07:38→21:34)
[2020-12-15] MEDS: ASCORBIC ACID 500 MG TABLET PO SCH (08:01)
[2020-12-15] MEDS: LISINOPRIL 10 MG TABLET PO SCH (08:01)
[2020-12-15] MEDS: ZINC SULFATE 220 MG CAPSULE PO SCH (08:01)
[2020-12-15] MEDS: amLODIPine BESYLATE 10 MG TABLET PO SCH (08:02)
[2020-12-15] MEDS: HYDROCHLOROTHIAZIDE 12.5 MG CAPSULE PO SCH (08:02)
[2020-12-15 10:08] LABS: Hematocrit 36.5 % (37.0-47.0); Hemoglobin 12.3 gm/dL (12.5-16.0); Mean Cell Volume 90.6 fl (78-100); Mean Corpuscular Hemoglobin 30.5 pg (27-31); Mean Corpuscular Hgb Conc 33.7 g/dl (32-36); Mean Platelet Volume 8.8 fl (8-12.5); Neutrophil # 7.7 K/mm3 (1.3-6.0); Neutrophil % 92.1 % (42-75.0); Platelet Count 309 K/mm3 (150-450); Red Blood Count 4.03 M/mm3 (4.2-5.4); Red Cell Distribution Width 12.8 % (11.5-14.0); White Blood Count 8.3 K/mm3 (4.0-10.5)
[2020-12-15 10:27] LABS: Albumin * 2.7 gm/dl (3.4-5.0); Anion Gap 15.3 mmol/L (6.8-13.8); BUN/Creatinine Ratio 26.8 (9.0-21.6); Bilirubin, Total 0.6 mg/dL (0.0-1.1); Ca. Corrected For Albumin 8.9 mg/dL (8.4-10.2); Calcium * 8.2 mg/dL (7.9-10.9); Carbon Dioxide 26.9 mmol/L (24-32.6); Potassium 3.2 mmol/L (3.4-4.6); Total Protein 6.4 gm/dL (6.2-8.2)
[2020-12-15] MEDS ORDERED: POTASSIUM CHLORIDE 20 MEQ TABLET.SA PO ONE (10:59)
[2020-12-15] MEDS ORDERED: FUROSEMIDE 10 MG/ML VIAL IV ONE (11:00)
[2020-12-15] MEDS: ENOXAPARIN SODIUM 40 MG/0.4 ML SYRG SC SCH (12:08)
[2020-12-15] MEDS: LEVOFLOXACIN IN DEXTROSE 5 % 500 MG/100 ML BAG IV SCH (12:08)
--- NOTE | 2020-12-15 23:18 | PN ---
Subjective - Date and Time Seen Date: 12/15/20 Time: 10:45 Subjective Narrative: Kristyn reports feeling better. Oxygen weaned down to 3lpm today compared to 8lpm yesterday. She reports breathing easier. No fever, chills, nausea, or vomiting. Objective - Vitals Vitals: Last Vital Signs Temp 36.3 C 12/15/20 19:58 Pulse 104 H 12/15/20 19:58 Resp 23 H 12/15/20 19:58 BP 144/81 12/15/20 19:58 Pulse Ox 94 12/15/20 19:58 - Abnormal Lab Findings Abnormal Lab Findings: Abnormal Lab Results 12/15/20 12/15/20 Range/Units 09:30 09:30 RBC 4.03 L (4.2-5.4) M/mm3 Hgb 12.3 L (12.5-16.0) gm/dL Hct 36.5 L (37.0-47.0) % Immature Gran % (Auto) 1.70 H (0.001-0.429) % Immature Gran # (Auto) 0.14 H (0.000-0.0310) K/mm3 Neutrophils % 92.1 H (42-75.0) % Lymphocytes % 4.1 L (20-51) % Neutrophils # 7.7 H (1.3-6.0) K/mm3 Lymphocytes # 0.34 L (1.5-3.5) k/mm3 Potassium 3.2 L (3.4-4.6) mmol/L Anion Gap 15.3 H (6.8-13.8) mmol/L BUN 26 H D (3-23) mg/dL BUN/Creatinine Ratio 26.8 H (9.0-21.6) Random Glucose 222 H D (70-110) mg/dL ALT 116 H (19-67) U/L Albumin 2.7 L (3.4-5.0) gm/dl - Exam Constitutional: Present: Alert, Oriented x3, Cooperative ENT Exam: Present: hearing grossly normal Respiratory: Present: no respiratory distress, crackles Cardiovascular/Chest: Present: no murmur, tachycardia Abdomen: Present: Normal bowel sounds, soft, nontender, nondistended Skin Exam: Present: normal color, warm/dry, no cyanosis Assessment/Plan Plan Narrative: Improving, using less oxygen today. Lungs still have crackles will give another dose of IV lasix today. Continue current treatment otherwise as she continues to improve. - Problems/Diagnosis (1) Acute respiratory failure due to COVID-19 Problem: Acute (2) Pneumonia due to COVID-19 virus Problem: Acute
[2020-12-16] MEDS: guaiFENesin/DEXTROMETHORPHAN SYRUP PO PRN ×3 (00:23→19:28)
[2020-12-16] MEDS: ACETAMINOPHEN 325 MG TABLET PO PRN ×3 (00:25→15:43)
[2020-12-16] MEDS: IPRATROPIUM/ALBUTEROL SULFATE 120 PUFF INHALER IH SCH ×6 (03:52→22:01)
[2020-12-16] MEDS: METHYLPREDNISOLONE SOD SUCC/PF 125 MG/2 ML VIAL IV SCH ×4 (03:52→22:01)
[2020-12-16] MEDS: PANTOPRAZOLE SODIUM 20 MG TABLET.DR PO SCH ×2 (06:17→20:18)
[2020-12-16 06:43] LABS: Hematocrit 36.7 % (37.0-47.0); Hemoglobin 12.3 gm/dL (12.5-16.0); Mean Cell Volume 90.4 fl (78-100); Mean Corpuscular Hemoglobin 30.3 pg (27-31); Mean Corpuscular Hgb Conc 33.5 g/dl (32-36); Mean Platelet Volume 8.5 fl (8-12.5); Neutrophil # 10.1 K/mm3 (1.3-6.0); Platelet Count 227 K/mm3 (150-450); Red Blood Count 4.06 M/mm3 (4.2-5.4); Red Cell Distribution Width 12.8 % (11.5-14.0); White Blood Count 10.9 K/mm3 (4.0-10.5)
[2020-12-16 06:56] LABS: Albumin * 2.6 gm/dl (3.4-5.0); Anion Gap 15.3 mmol/L (6.8-13.8); BUN/Creatinine Ratio 21.1 (9.0-21.6); Bilirubin, Total 0.7 mg/dL (0.0-1.1); Ca. Corrected For Albumin 8.9 mg/dL (8.4-10.2); Calcium * 8.1 mg/dL (7.9-10.9); Carbon Dioxide 25.8 mmol/L (24-32.6); Potassium 4.1 mmol/L (3.4-4.6); Total Protein 6.6 gm/dL (6.2-8.2)
[2020-12-16] MEDS: amLODIPine BESYLATE 10 MG TABLET PO SCH (08:13)
[2020-12-16] MEDS: LISINOPRIL 10 MG TABLET PO SCH (08:13)
[2020-12-16] MEDS: ASCORBIC ACID 500 MG TABLET PO SCH (08:13)
[2020-12-16] MEDS: HYDROCHLOROTHIAZIDE 12.5 MG CAPSULE PO SCH (08:14)
[2020-12-16] MEDS: ZINC SULFATE 220 MG CAPSULE PO SCH (08:14)
--- NOTE | 2020-12-16 10:30 | PN ---
Subjective - Date and Time Seen Date: 12/16/20 Time: 10:24 Subjective Narrative: I feel better but still have shortness of breath. Objective Objective Narrative: 65-year-old female admitted for COVID-19 pneumonia and dehydration was evaluated at bedside this morning was found to be afebrile and in no acute distress. Patient has shown some clinical improvement, her breathing is less labored and she has been successfully weaned to nasal cannula at 5 L. Patient responded well to the change in her treatment with IV Solu-Medrol antibiotics and diuretics. Chest x-ray was conducted on Wednesday which revealed CHF with fluid in her lungs, so she was treated with [id number] IV diuretics which she tolerated without any issues. Patient had great output in response to medication and says she is breathing easier now. Auscultation of the patient's lungs this morning revealed ongoing crackles indicating the need for further management with diuretics. Therefore we will treat the patient with daily diuretics to continue diuresing her and decreasing the preload. She reports feeling better than when she arrived but still has a persistent cough and desaturation when transferring from bed to bedside commode. We will continue to monitor closely. - Review of Systems Generalized/Overall Review: Reports: Weakness EENTM: Reports: No Symptoms Reported Respiratory: Reports: Cough, Shortness of Breath Cardiac: Reports: No Symptoms Reported Abdominal: Reports: No Symptoms Reported Genitourinary Symptoms: Reports: No Symptoms Reported Musculoskeletal Complaints: Reports: No Symptoms Reported Neurological: Reports: No Symptoms Reported Skin: Reports: No Symptoms Reported Endocrine: Reports: No Symptoms Reported - Vitals Vitals: Last Vital Signs Temp 36.5 C 12/16/20 07:04 Pulse 103 H 12/16/20 08:13 Resp 22 H 12/16/20 07:04 BP 133/86 12/16/20 08:13 Pulse Ox 93 12/16/20 08:39 - Abnormal Lab Findings Abnormal Lab Findings: Abnormal Lab Results 12/15/20 12/15/20 12/16/20 Range/Units 09:30 09:30 06:37 WBC 10.9 H D (4.0-10.5) K/mm3 RBC 4.03 L 4.06 L (4.2-5.4) M/mm3 Hgb 12.3 L 12.3 L (12.5-16.0) gm/dL Hct 36.5 L 36.7 L (37.0-47.0) % Immature Gran % (Auto) 1.70 H 1.70 H (0.001-0.429) % Immature Gran # (Auto) 0.14 H 0.19 H (0.000-0.0310) K/mm3 Neutrophils % 92.1 H 93.0 H (42-75.0) % Lymphocytes % 4.1 L 3.2 L (20-51) % Neutrophils # 7.7 H 10.1 H (1.3-6.0) K/mm3 Lymphocytes # 0.34 L 0.35 L (1.5-3.5) k/mm3 Potassium 3.2 L (3.4-4.6) mmol/L Anion Gap 15.3 H (6.8-13.8) mmol/L BUN 26 H D (3-23) mg/dL BUN/Creatinine Ratio 26.8 H (9.0-21.6) Random Glucose 222 H D (70-110) mg/dL ALT 116 H (19-67) U/L Albumin 2.7 L (3.4-5.0) gm/dl 12/16/20 Range/Units 06:37 WBC (4.0-10.5) K/mm3 RBC (4.2-5.4) M/mm3 Hgb (12.5-16.0) gm/dL Hct (37.0-47.0) % Immature Gran % (Auto) (0.001-0.429) % Immature Gran # (Auto) (0.000-0.0310) K/mm3 Neutrophils % (42-75.0) % Lymphocytes % (20-51) % Neutrophils # (1.3-6.0) K/mm3 Lymphocytes # (1.5-3.5) k/mm3 Potassium (3.4-4.6) mmol/L Anion Gap 15.3 H (6.8-13.8) mmol/L BUN (3-23) mg/dL BUN/Creatinine Ratio (9.0-21.6) Random Glucose 195 H (70-110) mg/dL ALT 97 H (19-67) U/L Albumin 2.6 L (3.4-5.0) gm/dl - Exam Constitutional: Present: Alert, Oriented x3, Cooperative, Well developed, Well nourished, No distress ENT Exam: Present: normal ENT inspection, hearing grossly normal Neck: Present: non-tender, full range of motion, supple, normal inspection, trachea midline Breasts: Present: Exam deferred, Nontender Respiratory: Present: chest non-tender, no respiratory distress, no accessory muscle use, crackles - Scattered crackles bilaterally Cardiovascular/Chest: Present: normal peripheral pulses, regular rate, rhythm, no chest tenderness, no edema, no gallop, no JVD, no murmur, no rub Abdomen: Present: Normal bowel sounds, soft, nontender, nondistended, no rebound tenderness, no hepatospenomegaly, no masses /Rectal: Present: Exam deferred Extremity: Present: normal range of motion, non-tender, normal inspection, no pedal edema, no calf tenderness Skin Exam: Present: normal color, warm/dry, no cyanosis Lymphatic: Present: no adenopathy Neurologic: Present: business support liaison II-XII nml as tested, no motor/sensory deficits, alert, normal mood/affect, oriented x 3 Appearance: Present: appropriate appearance, appropriate insight, neat, no memory impairment Eye contact: Present: cooperative, good eye contact, normal speech Thoughts: Present: normal thought pattern, no apparent hallucination Assessment/Plan Plan Narrative: We will continue with daily doses of diuretics to continue diuresing the patient. Oxygen will be weaned as tolerated. - Problems/Diagnosis (1) Pneumonia due to COVID-19 virus Problem: Acute (2) Moderate dehydration Problem: Resolved (3) Elevated d-dimer Problem: Acute (4) HTN (hypertension) Problem: Chronic (5) Transaminitis Problem: Acute (6) CHF (congestive heart failure) Problem: Acute
[2020-12-16] MEDS: FUROSEMIDE 10 MG/ML VIAL IV SCH (11:00)
[2020-12-16] MEDS: ENOXAPARIN SODIUM 40 MG/0.4 ML SYRG SC SCH (11:25)
[2020-12-16] MEDS: LEVOFLOXACIN IN DEXTROSE 5 % 500 MG/100 ML BAG IV SCH (11:50)
[2020-12-17] MEDS: METHYLPREDNISOLONE SOD SUCC/PF 125 MG/2 ML VIAL IV SCH ×4 (03:44→21:41)
[2020-12-17] MEDS: IPRATROPIUM/ALBUTEROL SULFATE 120 PUFF INHALER IH SCH ×6 (03:44→22:12)
[2020-12-17] MEDS: guaiFENesin/DEXTROMETHORPHAN SYRUP PO PRN ×2 (05:54→21:40)
[2020-12-17] MEDS: PANTOPRAZOLE SODIUM 20 MG TABLET.DR PO SCH ×2 (06:18→21:40)
[2020-12-17] MEDS: ZINC SULFATE 220 MG CAPSULE PO SCH (08:13)
[2020-12-17] MEDS: amLODIPine BESYLATE 10 MG TABLET PO SCH (08:13)
[2020-12-17] MEDS: ASCORBIC ACID 500 MG TABLET PO SCH (08:13)
[2020-12-17] MEDS: HYDROCHLOROTHIAZIDE 12.5 MG CAPSULE PO SCH (08:13)
[2020-12-17] MEDS: LISINOPRIL 10 MG TABLET PO SCH (08:13)
[2020-12-17] MEDS: FUROSEMIDE 10 MG/ML VIAL IV SCH (08:14)
[2020-12-17] MEDS: ACETAMINOPHEN 325 MG TABLET PO PRN ×2 (08:17→21:40)
[2020-12-17] MEDS: METOPROLOL TARTRATE 25 MG TABLET PO SCH ×2 (10:52→21:40)
[2020-12-17] MEDS: ENOXAPARIN SODIUM 40 MG/0.4 ML SYRG SC SCH (11:19)
[2020-12-17] MEDS: LEVOFLOXACIN IN DEXTROSE 5 % 500 MG/100 ML BAG IV SCH (11:51)
--- NOTE | 2020-12-17 12:15 | PN ---
Subjective - Date and Time Seen Date: 12/17/20 Time: 11:59 Subjective Narrative: I feel the same as yesterday Objective Objective Narrative: 65-year-old female admitted for COVID-19 pneumonia and dehydration was evaluated at bedside this morning was found to be afebrile and in no acute distress. Patient's condition is unchanged from yesterday, she remains on nasal cannula at 5 L. Attempts to wean her further has stalled due to the patient desaturating into the 80s when attempted to transfer to bedside commode or chair arm chair. Auscultation is still concerning for significant crackles in all lung gipson. The patient is currently on antibiotics and IV steroids and is tolerating the treatment well. She reports less difficulty breathing but still has a cough. Nursing staff also reported that the patient has been significantly tachycardic with a heart rate that sometimes reaches 130, therefore after discussing the issue a beta-juan pablo was ordered to be administered twice daily for better rate control. - Review of Systems Generalized/Overall Review: Reports: Weakness EENTM: Reports: No Symptoms Reported Respiratory: Reports: Cough, Shortness of Breath Cardiac: Reports: No Symptoms Reported Abdominal: Reports: No Symptoms Reported Genitourinary Symptoms: Reports: No Symptoms Reported Musculoskeletal Complaints: Reports: No Symptoms Reported Neurological: Reports: No Symptoms Reported Skin: Reports: No Symptoms Reported Endocrine: Reports: No Symptoms Reported - Vitals Vitals: Last Vital Signs Temp 36.7 C 12/17/20 10:16 Pulse 104 H 12/17/20 10:52 Resp 20 12/17/20 10:16 BP 151/78 H 12/17/20 10:52 Pulse Ox 95 12/17/20 10:16 - Exam Constitutional: Present: Alert, Oriented x3, Cooperative, Well developed, Well nourished, No distress ENT Exam: Present: normal ENT inspection, hearing grossly normal Neck: Present: non-tender, full range of motion, supple, normal inspection, trachea midline Respiratory: Present: chest non-tender, no accessory muscle use, crackles Cardiovascular/Chest: Present: normal peripheral pulses, regular rate, rhythm, no chest tenderness, no edema, no gallop, no JVD, no murmur, no rub Abdomen: Present: Normal bowel sounds, soft, nontender, nondistended, no rebound tenderness, no hepatospenomegaly, no masses /Rectal: Present: Exam deferred Extremity: Present: normal range of motion, non-tender, normal inspection, no pedal edema, no calf tenderness, normal capillary refill, pelvis stable Skin Exam: Present: normal color, warm/dry, no cyanosis Lymphatic: Present: no adenopathy 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 - Problems/Diagnosis (1) Pneumonia due to COVID-19 virus Problem: Acute (2) Moderate dehydration Problem: Resolved (3) Elevated d-dimer Problem: Acute (4) HTN (hypertension) Problem: Chronic (5) Transaminitis Problem: Acute (6) CHF (congestive heart failure) Problem: Acute (7) Sinus tachycardia Problem: Acute
[2020-12-18] MEDS: IPRATROPIUM/ALBUTEROL SULFATE 120 PUFF INHALER IH SCH ×6 (03:12→22:40)
[2020-12-18] MEDS: METHYLPREDNISOLONE SOD SUCC/PF 125 MG/2 ML VIAL IV SCH ×2 (03:12→09:32)
[2020-12-18] MEDS: guaiFENesin/DEXTROMETHORPHAN SYRUP PO PRN ×3 (03:13→21:39)
[2020-12-18] MEDS: PANTOPRAZOLE SODIUM 20 MG TABLET.DR PO SCH ×2 (07:52→21:31)
[2020-12-18] MEDS: FUROSEMIDE 10 MG/ML VIAL IV SCH (09:31)
[2020-12-18] MEDS: ASCORBIC ACID 500 MG TABLET PO SCH (09:33)
[2020-12-18] MEDS: ZINC SULFATE 220 MG CAPSULE PO SCH (09:34)
[2020-12-18] MEDS: HYDROCHLOROTHIAZIDE 12.5 MG CAPSULE PO SCH (09:34)
[2020-12-18] MEDS: LISINOPRIL 10 MG TABLET PO SCH (09:34)
[2020-12-18] MEDS: METOPROLOL TARTRATE 25 MG TABLET PO SCH ×2 (09:35→21:31)
[2020-12-18] MEDS: amLODIPine BESYLATE 10 MG TABLET PO SCH (09:35)
--- NOTE | 2020-12-18 12:03 | PN ---
Subjective - Date and Time Seen Date: 12/18/20 Time: 11:58 Subjective Narrative: I feel better but still have cough. Objective Objective Narrative: 65-year-old female admitted for COVID-19 pneumonia dehydration and CHF was evaluated at bedside this morning was found to be afebrile and in no acute distress. Patient continues to show clinical improvement, however she still requires oxygen by nasal cannula. Weaning of oxygen has been slow and she is currently on 4 L by OR, will continue to wean as she tolerates. Auscultation of the patient's lungs still significant for fine bibasilar crackles, for this we will keep her on daily diuretics to continue diuresing her. At the moment she reports feeling better but still has a lingering cough, it was explained to her that this is expected up to several weeks after being diagnosed with COVID-19. We will continue to monitor closely. - Review of Systems Generalized/Overall Review: Reports: Weakness EENTM: Reports: No Symptoms Reported Respiratory: Reports: Cough, Shortness of Breath Cardiac: Reports: No Symptoms Reported Abdominal: Reports: No Symptoms Reported Genitourinary Symptoms: Reports: No Symptoms Reported Musculoskeletal Complaints: Reports: No Symptoms Reported Neurological: Reports: No Symptoms Reported Skin: Reports: No Symptoms Reported Endocrine: Reports: No Symptoms Reported - Vitals Vitals: Last Vital Signs Temp 36.4 C 12/18/20 11:47 Pulse 90 12/18/20 11:47 Resp 14 12/18/20 11:47 BP 133/78 12/18/20 11:47 Pulse Ox 93 12/18/20 11:47 - Exam Constitutional: Present: Alert, Oriented x3, Cooperative, Well developed, Well nourished, No distress ENT Exam: Present: normal ENT inspection, hearing grossly normal Neck: Present: non-tender, full range of motion, supple, normal inspection, trachea midline Breasts: Present: Exam deferred, Nontender Respiratory: Present: chest non-tender, no respiratory distress, no accessory muscle use, crackles Cardiovascular/Chest: Present: normal peripheral pulses, regular rate, rhythm, no chest tenderness, no edema, no gallop, no JVD, no murmur Abdomen: Present: Normal bowel sounds, soft, nontender, nondistended, no rebound tenderness, no hepatospenomegaly, no masses /Rectal: Present: Exam deferred Extremity: Present: normal range of motion, non-tender, normal inspection, no pedal edema, no calf tenderness Skin Exam: Present: normal color, warm/dry, no cyanosis Lymphatic: Present: no adenopathy Neurologic: Present: trade show specialist II-XII nml as tested, normal cerebellar test, no motor/sensory deficits, alert, normal mood/affect, oriented x 3 Appearance: Present: appropriate appearance, appropriate insight, neat, no memory impairment Eye contact: Present: cooperative, good eye contact, normal speech Thoughts: Present: normal thought pattern, no apparent hallucination Assessment/Plan Plan Narrative: We will continue to wean patient's oxygen and IV steroids as tolerated and keep her on daily diuretics. Repeat labs have been ordered for the morning to reevaluate electrolytes. - Problems/Diagnosis (1) Pneumonia due to COVID-19 virus Problem: Acute (2) Moderate dehydration Problem: Resolved (3) Elevated d-dimer Problem: Acute (4) HTN (hypertension) Problem: Chronic (5) Transaminitis Problem: Acute (6) CHF (congestive heart failure) Problem: Acute (7) Sinus tachycardia Problem: Acute
[2020-12-18] MEDS: ENOXAPARIN SODIUM 40 MG/0.4 ML SYRG SC SCH (13:38)
[2020-12-18] MEDS: LEVOFLOXACIN IN DEXTROSE 5 % 500 MG/100 ML BAG IV SCH (13:39)
[2020-12-18] MEDS: METHYLPREDNISOLONE SOD SUCC/PF 40 MG/ML VIAL IV SCH (21:31)
[2020-12-19] MEDS: IPRATROPIUM/ALBUTEROL SULFATE 120 PUFF INHALER IH SCH ×6 (03:09→21:59)
[2020-12-19 07:29] LABS: Albumin * 2.5 gm/dl (3.4-5.0); Anion Gap 9.8 mmol/L (6.8-13.8); BUN/Creatinine Ratio 36.4 (9.0-21.6); Bilirubin, Total 0.6 mg/dL (0.0-1.1); Ca. Corrected For Albumin 9.3 mg/dL (8.4-10.2); Calcium * 8.4 mg/dL (7.9-10.9); Carbon Dioxide 31.8 mmol/L (24-32.6); Potassium 3.6 mmol/L (3.4-4.6); Total Protein 6.3 gm/dL (6.2-8.2)
[2020-12-19] MEDS: PANTOPRAZOLE SODIUM 20 MG TABLET.DR PO SCH ×2 (08:19→21:26)
[2020-12-19] MEDS: HYDROCHLOROTHIAZIDE 12.5 MG CAPSULE PO SCH (08:20)
[2020-12-19] MEDS: amLODIPine BESYLATE 10 MG TABLET PO SCH (08:20)
[2020-12-19] MEDS: ASCORBIC ACID 500 MG TABLET PO SCH (08:21)
[2020-12-19] MEDS: ZINC SULFATE 220 MG CAPSULE PO SCH (08:22)
[2020-12-19] MEDS: LISINOPRIL 10 MG TABLET PO SCH (08:22)
[2020-12-19] MEDS: FUROSEMIDE 10 MG/ML VIAL IV SCH (08:23)
[2020-12-19] MEDS: METHYLPREDNISOLONE SOD SUCC/PF 40 MG/ML VIAL IV SCH (08:23)
[2020-12-19] MEDS: METOPROLOL TARTRATE 25 MG TABLET PO SCH (09:26)
--- NOTE | 2020-12-19 10:12 | PN ---
Subjective - Date and Time Seen Date: 12/19/20 Time: 10:00 Subjective Narrative: I feel better. Objective Objective Narrative: 65-year-old female admitted for COVID-19 pneumonia dehydration and CHF was evaluated at bedside this morning was found to be afebrile and in no acute distress. Patient continues to desat on exertion and weaning her off of oxygen has been unsuccessful. Her sinus tachycardia especially on exertion continues to be an issue, therefore metoprolol dose was increased for better rate control. However clinically she reports feeling better and looks better, will continue weaning steroids and oxygen as she tolerates. - Review of Systems Generalized/Overall Review: Reports: Weakness EENTM: Reports: No Symptoms Reported Respiratory: Reports: Cough, Shortness of Breath Cardiac: Reports: No Symptoms Reported Abdominal: Reports: No Symptoms Reported Genitourinary Symptoms: Reports: No Symptoms Reported Musculoskeletal Complaints: Reports: No Symptoms Reported Neurological: Reports: No Symptoms Reported Skin: Reports: No Symptoms Reported Endocrine: Reports: No Symptoms Reported - Vitals Vitals: Last Vital Signs Temp 35.9 C L 12/19/20 07:30 Pulse 96 12/19/20 09:26 Resp 18 12/19/20 07:30 BP 113/69 12/19/20 09:26 Pulse Ox 91 L 12/19/20 07:30 - Abnormal Lab Findings Abnormal Lab Findings: Abnormal Lab Results 12/19/20 Range/Units 07:13 BUN 36 H D (3-23) mg/dL BUN/Creatinine Ratio 36.4 H (9.0-21.6) Random Glucose 173 H (70-110) mg/dL Albumin 2.5 L (3.4-5.0) gm/dl - Exam Constitutional: Present: Alert, Oriented x3, Cooperative, Well developed, Well nourished, No distress ENT Exam: Present: normal ENT inspection, hearing grossly normal Neck: Present: non-tender, full range of motion, supple, normal inspection, trachea midline Breasts: Present: Exam deferred, Nontender Respiratory: Present: chest non-tender, no respiratory distress, no accessory muscle use, crackles Cardiovascular/Chest: Present: normal peripheral pulses, regular rate, rhythm, no chest tenderness, no edema, no gallop, no JVD, no murmur, no rub Neurologic: Present: branch manager II-XII nml as tested, alert, oriented x 3 Appearance: Present: appropriate appearance, appropriate insight, neat, no memory impairment Eye contact: Present: cooperative, good eye contact Thoughts: Present: normal thought pattern, no apparent hallucination Assessment/Plan Plan Narrative: Toprol was increased, will continue to watch heart rate and continue to wean oxygen as tolerated. Patient has also been switched from IV to p.o. steroids. - Problems/Diagnosis (1) Pneumonia due to COVID-19 virus Problem: Acute (2) Moderate dehydration Problem: Resolved (3) Elevated d-dimer Problem: Acute (4) HTN (hypertension) Problem: Chronic (5) Transaminitis Problem: Acute (6) CHF (congestive heart failure) Problem: Acute (7) Sinus tachycardia Problem: Acute
[2020-12-19] MEDS ORDERED: predniSONE 20 MG TABLET PO SCH (10:30)
[2020-12-19] MEDS ORDERED: METOPROLOL TARTRATE 25 MG TABLET PO ONE (10:45)
[2020-12-19] MEDS: predniSONE 40 MG, predniSONE 10 MG PO SCH ×2 (11:34)
[2020-12-19] MEDS: LEVOFLOXACIN IN DEXTROSE 5 % 500 MG/100 ML BAG IV SCH (13:02)
[2020-12-19] MEDS: ENOXAPARIN SODIUM 40 MG/0.4 ML SYRG SC SCH (13:02)
[2020-12-19] MEDS: METOPROLOL TARTRATE 50 MG TABLET PO SCH (21:26)
[2020-12-20] MEDS ORDERED: MELATONIN 3,000 MCG TABLET ONE (01:07)
[2020-12-20] MEDS: MELATONIN 3,000 MCG TABLET PO PRN ×2 (01:08→21:53)
[2020-12-20] MEDS: IPRATROPIUM/ALBUTEROL SULFATE 120 PUFF INHALER IH SCH ×6 (03:43→22:03)
[2020-12-20] MEDS: PANTOPRAZOLE SODIUM 20 MG TABLET.DR PO SCH ×2 (09:14→20:18)
[2020-12-20] MEDS: HYDROCHLOROTHIAZIDE 12.5 MG CAPSULE PO SCH (09:14)
[2020-12-20] MEDS: ZINC SULFATE 220 MG CAPSULE PO SCH (09:15)
[2020-12-20] MEDS: LISINOPRIL 10 MG TABLET PO SCH (09:15)
[2020-12-20] MEDS: ASCORBIC ACID 500 MG TABLET PO SCH (09:15)
[2020-12-20] MEDS: METOPROLOL TARTRATE 50 MG TABLET PO SCH ×2 (09:15→20:18)
[2020-12-20] MEDS: amLODIPine BESYLATE 10 MG TABLET PO SCH (09:15)
[2020-12-20] MEDS: predniSONE 40 MG, predniSONE 10 MG PO SCH ×2 (09:15)
[2020-12-20] MEDS: guaiFENesin/DEXTROMETHORPHAN SYRUP PO PRN (09:19)
[2020-12-20] MEDS: FUROSEMIDE 10 MG/ML VIAL IV SCH (10:15)
--- NOTE | 2020-12-20 11:26 | PN ---
Subjective - Date and Time Seen Date: 12/20/20 Time: 11:26 Subjective Narrative: She still gets short of breath with exertion. She is needing 4 L nasal cannula. Occasional coughs. Objective - Review of Systems Generalized/Overall Review: Denies: Chills, Fever EENTM: Denies: Blurred Vision Respiratory: Reports: Cough, Shortness of Breath. Denies: Orthopnea Cardiac: Denies: Chest Pain, Edema, Palpitations Abdominal: Denies: Nausea, Vomiting, Abdominal Pain Genitourinary Symptoms: Denies: Urgency, Frequency Musculoskeletal Complaints: Denies: Joint Pain Neurological: Denies: Headache Skin: Denies: Lesions, Rash Misc: All systems neg except as marked - Vitals Vitals: Last Vital Signs Temp 36.1 C 12/20/20 11:05 Pulse 81 12/20/20 11:05 Resp 18 12/20/20 11:05 BP 100/63 12/20/20 11:05 Pulse Ox 93 12/20/20 11:05 - Exam Constitutional: Present: Alert, Oriented x3, Cooperative ENT Exam: Present: hearing grossly normal Neck: Present: supple. Absent: lymphadenopathy (R), lymphadenopathy (L) Respiratory: Present: decreased breath sounds, No rales, No wheezing Cardiovascular/Chest: Present: regular rate, rhythm, no JVD, no murmur Abdomen: Present: Normal bowel sounds, soft, nontender, nondistended Extremity: Present: no calf tenderness. Absent: pedal edema Assessment/Plan Plan Narrative: Kristyn is hospital day #12 for acute respiratory failure hypoxemic type due to Covid pneumonia. She continues to have dyspnea on exertion and is necessitating 4 L of oxygen via nasal cannula to keep her sats up. She is on day 6 of IV Levaquin and IV Lasix. We will stop her IV Lasix today and continue with her IV Levaquin. We will do blood work tomorrow morning and follow-up chest x-ray. Continue with present management and current medications. - Problems/Diagnosis (1) Acute respiratory failure due to COVID-19 Problem: Acute (2) Pneumonia due to COVID-19 virus Problem: Acute (3) HTN (hypertension) Problem: Chronic Qualifiers: Hypertension type: essential hypertension Qualified Code(s): I10 - Essential (primary) hypertension
[2020-12-20] MEDS: ENOXAPARIN SODIUM 40 MG/0.4 ML SYRG SC SCH (11:58)
[2020-12-20] MEDS: LEVOFLOXACIN IN DEXTROSE 5 % 500 MG/100 ML BAG IV SCH (12:51)
[2020-12-21] MEDS: IPRATROPIUM/ALBUTEROL SULFATE 120 PUFF INHALER IH SCH ×5 (04:07→18:34)
[2020-12-21] MEDS: predniSONE 40 MG, predniSONE 10 MG PO SCH ×2 (08:25)
[2020-12-21] MEDS: HYDROCHLOROTHIAZIDE 12.5 MG CAPSULE PO SCH (08:26)
[2020-12-21] MEDS: METOPROLOL TARTRATE 50 MG TABLET PO SCH ×2 (08:26→20:59)
[2020-12-21] MEDS: ZINC SULFATE 220 MG CAPSULE PO SCH (08:26)
[2020-12-21] MEDS: LISINOPRIL 10 MG TABLET PO SCH (08:26)
[2020-12-21] MEDS: amLODIPine BESYLATE 10 MG TABLET PO SCH (08:26)
[2020-12-21] MEDS: ASCORBIC ACID 500 MG TABLET PO SCH (08:26)
[2020-12-21] MEDS: PANTOPRAZOLE SODIUM 20 MG TABLET.DR PO SCH ×2 (08:26→20:59)
--- NOTE | 2020-12-21 11:19 | PN ---
Subjective - Date and Time Seen Date: 12/21/20 Time: 11:18 Subjective Narrative: still gets SOB with exertion but overall feels better than the days before. Objective - Review of Systems Generalized/Overall Review: Reports: Weakness. Denies: Chills, Fever EENTM: Denies: Blurred Vision Respiratory: Reports: Cough - Occasional and less, Shortness of Breath - With exertion Cardiac: Denies: Chest Pain, Edema, Palpitations Abdominal: Denies: Nausea, Vomiting Genitourinary Symptoms: Denies: Urgency, Frequency Musculoskeletal Complaints: Denies: Joint Pain Neurological: Denies: Headache Skin: Denies: Lesions, Rash Misc: All systems neg except as marked - Vitals Vitals: Last Vital Signs Temp 36.0 C 12/21/20 06:00 Pulse 76 12/21/20 10:02 Resp 18 12/21/20 10:02 BP 111/70 12/21/20 08:26 Pulse Ox 100 12/21/20 10:02 - Exam Constitutional: Present: Alert, Oriented x3, Cooperative ENT Exam: Present: hearing grossly normal Neck: Present: supple. Absent: lymphadenopathy (R), lymphadenopathy (L) Respiratory: Present: decreased breath sounds, crackles - occasional, No rales, No wheezing Cardiovascular/Chest: Present: regular rate, rhythm, no JVD, no murmur Abdomen: Present: Normal bowel sounds, soft, nontender, nondistended Extremity: Present: no calf tenderness, pedal edema Assessment/Plan Plan Narrative: Kristyn is hospital day 13 for Covid pneumonia. Overall she is feeling better than when she came in. Her follow-up chest x-ray shows interval improvement. She continues to be needing 4 L of oxygen especially with exertion but it is being tapered off slowly. She is also day 8 of Levaquin. We will do blood work in the morning. - Problems/Diagnosis (1) Acute respiratory failure due to COVID-19 Problem: Acute (2) Pneumonia due to COVID-19 virus Problem: Acute (3) HTN (hypertension) Problem: Chronic Qualifiers: Hypertension type: essential hypertension Qualified Code(s): I10 - Essential (primary) hypertension
[2020-12-21] MEDS: ENOXAPARIN SODIUM 40 MG/0.4 ML SYRG SC SCH (12:11)
[2020-12-21] MEDS: LEVOFLOXACIN IN DEXTROSE 5 % 500 MG/100 ML BAG IV SCH (12:11)
[2020-12-21] MEDS: guaiFENesin/DEXTROMETHORPHAN SYRUP PO PRN (21:01)
[2020-12-22] MEDS: IPRATROPIUM/ALBUTEROL SULFATE 120 PUFF INHALER IH SCH ×7 (04:21→22:26)
[2020-12-22 06:36] LABS: Hematocrit 37.6 % (37.0-47.0); Hemoglobin 12.4 gm/dL (12.5-16.0); Mean Cell Volume 93.5 fl (78-100); Mean Corpuscular Hemoglobin 30.8 pg (27-31); Mean Platelet Volume 9.1 fl (8-12.5); Neutrophil # 9.3 K/mm3 (1.3-6.0); Neutrophil % 79.6 % (42-75.0); Platelet Count 248 K/mm3 (150-450); Red Blood Count 4.02 M/mm3 (4.2-5.4); Red Cell Distribution Width 13.2 % (11.5-14.0); White Blood Count 11.7 K/mm3 (4.0-10.5)
[2020-12-22 07:20] LABS: Anion Gap 11.2 mmol/L (6.8-13.8); BUN/Creatinine Ratio 34.1 (9.0-21.6); CRP 1.3 mg/dL (0.0-0.9); Calcium * 8.1 mg/dL (7.9-10.9); Carbon Dioxide 31.2 mmol/L (24-32.6); Estimated Creat Clear 54.6; Potassium 3.4 mmol/L (3.4-4.6)
[2020-12-22] MEDS: ZINC SULFATE 220 MG CAPSULE PO SCH (08:29)
[2020-12-22] MEDS: HYDROCHLOROTHIAZIDE 12.5 MG CAPSULE PO SCH (08:29)
[2020-12-22] MEDS: ASCORBIC ACID 500 MG TABLET PO SCH (08:29)
[2020-12-22] MEDS: predniSONE 40 MG, predniSONE 10 MG PO SCH ×2 (08:29)
[2020-12-22] MEDS: PANTOPRAZOLE SODIUM 20 MG TABLET.DR PO SCH ×2 (08:29→20:55)
[2020-12-22] MEDS: amLODIPine BESYLATE 10 MG TABLET PO SCH (08:30)
[2020-12-22] MEDS: METOPROLOL TARTRATE 50 MG TABLET PO SCH ×2 (08:30→20:54)
[2020-12-22] MEDS: LISINOPRIL 10 MG TABLET PO SCH (08:30)
--- NOTE | 2020-12-22 10:28 | PN ---
Subjective - Date and Time Seen Date: 12/22/20 Time: 10:27 Subjective Narrative: is able to stay on RA at 93-94 % but desats with exertion. Objective - Review of Systems Generalized/Overall Review: Reports: Weakness. Denies: Chills, Fever EENTM: Denies: Blurred Vision Respiratory: Reports: Cough, Shortness of Breath. Denies: Wheezing Cardiac: Denies: Chest Pain, Edema, Palpitations Abdominal: Denies: Nausea, Vomiting, Abdominal Pain Genitourinary Symptoms: Denies: Urgency, Frequency Musculoskeletal Complaints: Denies: Joint Pain Neurological: Denies: Headache Skin: Denies: Lesions, Rash Misc: All systems neg except as marked - Vitals Vitals: Last Vital Signs Temp 36.9 C 12/22/20 08:33 Pulse 94 12/22/20 08:33 Resp 17 12/22/20 08:33 BP 129/78 12/22/20 08:33 Pulse Ox 94 12/22/20 08:33 - Abnormal Lab Findings Abnormal Lab Findings: Abnormal Lab Results 12/22/20 12/22/20 Range/Units 06:32 06:32 WBC 11.7 H (4.0-10.5) K/mm3 RBC 4.02 L (4.2-5.4) M/mm3 Hgb 12.4 L (12.5-16.0) gm/dL Immature Gran % (Auto) 1.90 H (0.001-0.429) % Immature Gran # (Auto) 0.22 H (0.000-0.0310) K/mm3 Neutrophils % 79.6 H (42-75.0) % Lymphocytes % 12.5 L (20-51) % Neutrophils # 9.3 H (1.3-6.0) K/mm3 Lymphocytes # 1.46 L (1.5-3.5) k/mm3 BUN 29 H (3-23) mg/dL BUN/Creatinine Ratio 34.1 H (9.0-21.6) Random Glucose 140 H (70-110) mg/dL Ferritin 1786 H (8-252) ng/mL Lactate Dehydrogenase 278 H (81-234) U/L C-Reactive Prot, Quant 1.3 H (0.0-0.9) mg/dL - Exam Constitutional: Present: Alert, Oriented x3, Cooperative ENT Exam: Present: hearing grossly normal Neck: Present: supple. Absent: lymphadenopathy (R), lymphadenopathy (L) Respiratory: Present: decreased breath sounds, No rales, No wheezing Cardiovascular/Chest: Present: regular rate, rhythm, no JVD, no murmur Abdomen: Present: Normal bowel sounds, soft, nontender, nondistended Extremity: Present: no calf tenderness. Absent: lower extremity edema Assessment/Plan Plan Narrative: Kristyn is hospital day 15 for Covid pneumonia. She is slowly but steadily improving. She is now able to tolerate room air for some period of time only desaturating with activity. She might be able to be discharged in the morning with home oxygen. Her leukocytosis is likely related to her oral steroids. She is on day # 9 of [facility]. - Problems/Diagnosis (1) Acute respiratory failure due to COVID-19 Problem: Acute (2) Pneumonia due to COVID-19 virus Problem: Acute (3) HTN (hypertension) Problem: Chronic Qualifiers: Hypertension type: essential hypertension Qualified Code(s): I10 - Essential (primary) hypertension
[2020-12-22] MEDS: ENOXAPARIN SODIUM 40 MG/0.4 ML SYRG SC SCH (11:45)
[2020-12-22] MEDS: LEVOFLOXACIN IN DEXTROSE 5 % 500 MG/100 ML BAG IV SCH (11:46)
[2020-12-22] MEDS: guaiFENesin/DEXTROMETHORPHAN SYRUP PO PRN (20:55)
[2020-12-22] MEDS: MELATONIN 3,000 MCG TABLET PO PRN (22:24)
[2020-12-23] MEDS: IPRATROPIUM/ALBUTEROL SULFATE 120 PUFF INHALER IH SCH ×3 (04:31→12:27)
[2020-12-23] MEDS: predniSONE 40 MG, predniSONE 10 MG PO SCH ×2 (09:00)
[2020-12-23] MEDS: HYDROCHLOROTHIAZIDE 12.5 MG CAPSULE PO SCH (09:01)
[2020-12-23] MEDS: ZINC SULFATE 220 MG CAPSULE PO SCH (09:01)
[2020-12-23] MEDS: PANTOPRAZOLE SODIUM 20 MG TABLET.DR PO SCH (09:01)
[2020-12-23] MEDS: amLODIPine BESYLATE 10 MG TABLET PO SCH (09:01)
[2020-12-23] MEDS: ASCORBIC ACID 500 MG TABLET PO SCH (09:01)
[2020-12-23] MEDS: METOPROLOL TARTRATE 50 MG TABLET PO SCH (09:01)
[2020-12-23] MEDS: LISINOPRIL 10 MG TABLET PO SCH (09:01)
--- NOTE | 2020-12-23 09:54 | DS ---
(1) Acute respiratory failure due to COVID-19 Problem: Acute (2) Pneumonia due to COVID-19 virus Problem: Acute (3) HTN (hypertension) Problem: Chronic Qualifiers: Hypertension type: essential hypertension Qualified Code(s): I10 - Essential (primary) hypertension Date of Discharge:: 12/23/20 Hospital Course: Kristyn Arango is a 65-year-old female with past medical history of hypertension and pulmonary embolism who was admitted on 12/08/2020 for worsening fatigue and generalized weakness of 2 weeks duration. Patient reports becoming ill 2 weeks ago when she developed a cough and fever and chills, she gradually got weaker and felt dehydrated. The patient reports she tried to eat to keep her nutrition but her appetite was poor, so she only ate crackers and drink water. She had been seen twice at [facility] in the ER where she was tested for COVID-19 but was negative, she was told she most likely has community pneumonia and was sent home. The night before her admission her symptoms worsened and she could hardly sit up so she came to our ER where she was once again tested for COVID-19 and came back positive. The patient's O2 sats have been suboptimal although she did denies any melba shortness of breath. She also has a persistent cough that is worse on deep inspiration that was not responding to at home remedies. The patient did not feel safe staying home and felt that she needed to come to the hospital for care. She was admitted to our ICU for acute respiratory failure hypoxemic type and needed oxygen via nasal cannula and then eventually CPAP. She was also started on Levaquin possible bacterial pneumonia. She was eventually weaned back to nasal cannula and now to room air. She does have a decrease in her oxygen saturation to the mid 80s with activity. She is able to go home today with home oxygen and and should have a pulse oximeter. She is homebound because of her dyspnea on exertion and will need nursing care for monitoring of vital signs specially oxygen saturation, medication management and physical therapy for generalized weakness from deconditioning. The need for home health care skilled services is directly related to the time spent [id number] with the person. Procedures Performed: none Results and Findings: Lab Pending Results 12/08/20 07:10: Sodium 133, Plasma Sodium 134, Potassium 3.8, Chloride 99, Carbon Dioxide 21.1 L, Anion Gap 16.7 H, BUN 13, Creatinine 1.05, Est GFR (Non- Af Amer) 56 L, BUN/Creatinine Ratio 12.4, Random Glucose 133 H, Calcium 8.1, Calcium Adj for Albumin 8.6, Total Bilirubin 0.3, AST 65 H, ALT 78 H, Alkaline Phosphatase 82, Troponin I Less than 0.017, B-Natriuretic Peptide 378 H, Total Protein 7.1, Albumin 3.0 L 12/08/20 07:10: WBC 7.6, RBC 3.88 L, Hgb 12.0 L, Hct 36.5 L, MCV 94.1, MCH 30.9, MCHC 32.9, RDW 13.0, Plt Count 151, MPV 8.8, Neutrophils % (Manual) 85 H, Band Neuts % (Manual) 3 H, Lymphocytes % (Manual) 10 L, Monocytes % (Manual) 2, Neutrophils # (Manual) 6.5 H, Lymphocytes # (Manual) 0.8 L, Monocytes # (Manual) 0.2, Platelet Estimate Normal, Anisocytosis Trace 12/08/20 07:10: PTT (Isabela) 31.3 12/08/20 07:10: D-Dimer 2.81 H 12/08/20 07:15: pCO2 22.0 L, pO2 58.7 L, HCO3 16.2 L, Total CO2 16.9 L, Base Excess -5.3 L, ABG pH 7.49 H, ABG O2 Sat (Measured) 93.0 L 12/08/20 08:13: Urine Color Yellow, Urine Appearance Clear, Urine pH 7.0, Ur Specific [place] 1.020, Urine Protein 100 H, Urine Glucose (UA) Negative, Urine Ketones Large, Urine Blood 5 H, Urine Nitrate Negative, Urine Bilirubin 1 H, Urine Urobilinogen Normal, Ur Leukocyte Esterase Negative, Urine RBC 0-5, Urine WBC 0-5, Ur Epithelial Cells 0-5, Urine Bacteria None seen, Urine Culture Comments No culture indicated 12/08/20 08:15: SARS-CoV-2 (PCR) Detected H 12/09/20 06:16: Sodium 139, Plasma Sodium 140, Potassium 3.8, Chloride 106, Carbon Dioxide 21.3 L, Anion Gap 15.5 H, BUN 15, Creatinine 1.05, Est GFR (Non- Af Amer) 56 L, BUN/Creatinine Ratio 14.3, Random Glucose 146 H, Calcium 7.7 L, Calcium Adj for Albumin 8.6, Total Bilirubin 0.3, AST 64 H, ALT 69 H, Alkaline Phosphatase 73, Total Protein 6.4, Albumin 2.5 L 12/11/20 06:36: Sodium 139, Plasma Sodium 140, Potassium 3.5, Chloride 104, Carbon Dioxide 22.2 L, Anion Gap 16.3 H, BUN 17, Creatinine 0.78, Est GFR (Non- Af Amer) 79 D, BUN/Creatinine Ratio 21.8 H, Random Glucose 142 H, Calcium 8.0, Calcium Adj for Albumin 8.9, Total Bilirubin 0.4, AST 63 H, ALT 84 H, Alkaline Phosphatase 77, Total Protein 6.7, Albumin 2.5 L 12/13/20 10:05: Sodium 138, Plasma Sodium 138, Potassium 3.3 L, Chloride 101, Carbon Dioxide 23.2 L, Anion Gap 17.1 H, BUN 17, Creatinine 0.85, Est GFR (Non- Af Amer) 71, BUN/Creatinine Ratio 20.0, Random Glucose 126 H, Calcium 7.9, Calcium Adj for Albumin 8.8, Total Bilirubin 0.5, AST 83 H, ALT 112 H, Alkaline Phosphatase 88, Total Protein 6.0 L, Albumin 2.5 L 12/15/20 09:30: WBC 8.3, RBC 4.03 L, Hgb 12.3 L, Hct 36.5 L, MCV 90.6, MCH 30.5, MCHC 33.7, RDW 12.8, Plt Count 309, MPV 8.8, Immature Gran % (Auto) 1.70 H, Immature Gran # (Auto) 0.14 H, Neutrophils % 92.1 H, Lymphocytes % 4.1 L, Monocytes % 2.0, Eosinophils % 0.0, Basophils % 0.1, Nucleated RBC % 0.0, Neutrophils # 7.7 H, Lymphocytes # 0.34 L, Monocytes # 0.2, Eosinophils # 0.0, Absolute Basophils 0.0 12/15/20 09:30: Sodium 136, Plasma Sodium 138, Potassium 3.2 L, Chloride 97, Carbon Dioxide 26.9, Anion Gap 15.3 H, BUN 26 H D, Creatinine 0.97, Est GFR (Non-Af Amer) 61, BUN/Creatinine Ratio 26.8 H, Random Glucose 222 H D, Calcium 8.2, Calcium Adj for Albumin 8.9, Total Bilirubin 0.6, AST 45, ALT 116 H, Alkaline Phosphatase 96, Total Protein 6.4, Albumin 2.7 L 12/16/20 06:37: WBC 10.9 H D, RBC 4.06 L, Hgb 12.3 L, Hct 36.7 L, MCV 90.4, MCH 30.3, MCHC 33.5, RDW 12.8, Plt Count 227, MPV 8.5, Immature Gran % (Auto) 1.70 H, Immature Gran # (Auto) 0.19 H, Neutrophils % 93.0 H, Lymphocytes % 3.2 L, Monocytes % 2.0, Eosinophils % 0.0, Basophils % 0.1, Nucleated RBC % 0.0, Neutrophils # 10.1 H, Lymphocytes # 0.35 L, Monocytes # 0.2, Eosinophils # 0.0, Absolute Basophils 0.0 12/16/20 06:37: Sodium 137, Plasma Sodium 139, Potassium 4.1 D, Chloride 100, Carbon Dioxide 25.8, Anion Gap 15.3 H, BUN 20, Creatinine 0.95, Est GFR (Non-Af Amer) 63, BUN/Creatinine Ratio 21.1, Random Glucose 195 H, Calcium 8.1, Calcium Adj for Albumin 8.9, Total Bilirubin 0.7, AST 33, ALT 97 H, Alkaline Phosphatase 93, Total Protein 6.6, Albumin 2.6 L 12/19/20 07:13: Sodium 136, Plasma Sodium 137, Potassium 3.6, Chloride 98, Carbon Dioxide 31.8, Anion Gap 9.8, BUN 36 H D, Creatinine 0.99, Est GFR (Non-Af Amer) 60, BUN/Creatinine Ratio 36.4 H, Random Glucose 173 H, Calcium 8.4, Calcium Adj for Albumin 9.3, Total Bilirubin 0.6, AST 20, ALT 55, Alkaline Phosphatase 86, Total Protein 6.3, Albumin 2.5 L 12/22/20 06:32: WBC 11.7 H, RBC 4.02 L, Hgb 12.4 L, Hct 37.6, MCV 93.5, MCH 30.8, MCHC 33.0, RDW 13.2, Plt Count 248, MPV 9.1, Immature Gran % (Auto) 1.90 H, Immature Gran # (Auto) 0.22 H, Neutrophils % 79.6 H, Lymphocytes % 12.5 L, Monocytes % 5.6, Eosinophils % 0.2, Basophils % 0.2, Nucleated RBC % 0.0, Neutrophils # 9.3 H, Lymphocytes # 1.46 L, Monocytes # 0.7, Eosinophils # 0.0, Absolute Basophils 0.0 12/22/20 06:32: Sodium 137, Plasma Sodium 138, Potassium 3.4, Chloride 98, Carbon Dioxide 31.2, Anion Gap 11.2, BUN 29 H, Creatinine 0.85, Est GFR (Non-Af Amer) 71, BUN/Creatinine Ratio 34.1 H, Random Glucose 140 H, Calcium 8.1, Ferritin 1786 H, Lactate Dehydrogenase 278 H, C-Reactive Prot, Quant 1.3 H Discharge Location: Home Disposition: Home Health Service [facility] Agency[facility] Condition: Stable Discharge Activity: Activity as tolerated Discharge Diet: Low salt Detention Therapy: Physical Therapy Referrals: Mary Jo Kim ARNP [Primary Care Provider] - Problem Oriented Discharge Instructions to Patient/Family: [email or web address] Additional Patient Instructions (free text): Follow-up with her PCP in 1 week via telehealth. Prescriptions (Any new or edited meds): Ipratropium/Albuterol Sulfate [Combivent Respimat 20-100 mcg] 1 puff IH Q6H #7 inhaler Transmission Status: Received by [facility] Melatonin 3,000 mcg PO HS PRN #30 tab PRN Reason: Insomnia Transmission Status: Received by [facility] Acetaminophen [Tylenol] 650 mg PO Q4H PRN #20 tab PRN Reason: Mild Pain (Pain Scale 1-3) Transmission Status: Received by [facility] Zinc Sulfate 220 mg PO DAILY #30 cap Transmission Status: Received by [facility] Complete Home Medications List: Complete Home Medication List: Lisinopril/Hydrochlorothiazide [Lisinopril-Hctz 10-12.5 mg Tab] 1 ea PO DAILY 09/05/19 amLODIPine BESYLATE [Norvasc] 5 mg PO DAILY 12/08/20 Acetaminophen [Tylenol] 650 mg PO Q4H PRN #20 tab 12/23/20 Ipratropium/Albuterol Sulfate [Combivent Respimat 20-100 mcg] 1 puff IH Q6H #7 inhaler 12/23/20 Melatonin 3,000 mcg PO HS PRN #30 tab 12/23/20 Zinc Sulfate 220 mg PO DAILY #30 cap 12/23/20 Forms: Patient Portal Registration
[2020-12-23] MEDS: guaiFENesin/DEXTROMETHORPHAN SYRUP PO PRN (13:06)
[2020-12-23] MEDS: LEVOFLOXACIN IN DEXTROSE 5 % 500 MG/100 ML BAG IV SCH (13:07)
[2020-12-23] MEDS: ENOXAPARIN SODIUM 40 MG/0.4 ML SYRG SC SCH (13:25)
[2020-12-23 15:49] VITALS: BP 107/57
== END 2020-12-23 15:25 | disposition home health service (06) | DRG 177 ==
LOC: ER 06:30 → MS 10:57 → SCU 12-10 08:05
PROVIDERS: ADMIT Family Medicine; ATTEND Family Medicine
DX: J12.82 Pneumonia due to coronavirus disease 2019; Z86.711 Personal history of pulmonary embolism; R00.0 Tachycardia, unspecified; J96.01 Acute respiratory failure with hypoxia; R74.01 Elevation of levels of liver transaminase levels; E86.0 Dehydration; U07.1 COVID-19; I11.0 Hypertensive heart disease with heart failure; I50.9 Heart failure, unspecified